=== PATIENT | female | born 1950 | race Caucasian/White ===

== ENCOUNTER → 2021-11-20 16:31 | Outpatient (CLI) | payer MEDICARE, OTHER, SELFPAY ==
--- NOTE | 2021-11-20 | DI.RAD.S_ITS ---
PROCEDURE: XR KNEE RT 3V INDICATIONS: M25.561 TECHNIQUE: 3 views of the knee were acquired. COMPARISON: None. FINDINGS: Bones: No fractures or dislocations. No suspicious bony lesions. Tricompartment degenerative osteophytes. Lateral compartment joint space loss. Soft tissues: No joint effusion. No suspicious soft tissue calcifications. IMPRESSION: Degenerative arthritis of the right knee. Dictated by: Wai Lui M.D. on 11/21/2021 at 15:32 Approved by: Wai Lui M.D. on 11/21/2021 at 15:33
== END ==
PROVIDERS: PCP Family Medicine; Referring Provider Family Medicine; Visit Provider Family Medicine
DX: M17.11 Unilateral primary osteoarthritis, right knee (principal); M25.561 Pain in right knee
CPT/HCPCS: 73562

== ENCOUNTER → 2021-12-23 13:57 | Outpatient (CLI) | payer MEDICARE, OTHER, SELFPAY ==
--- NOTE | 2021-12-23 | DI.MG.S_ITS ---
BILATERAL DIGITAL SCREENING MAMMOGRAM 3D/2D WITH CAD: 12/23/2021 CLINICAL: Routine screening. Comparison is made to exams dated: 09/25/2020 mammogram, 10/14/2017 mammogram, and 09/14/2016 mammogram - [facility]. There are scattered areas of fibroglandular density in both breasts (category b / 25%-50% glandular tissue). Current study was also evaluated with a Computer Aided Detection (CAD) system. No significant masses, calcifications, or other findings are seen in either breast. There has been no significant interval change. IMPRESSION: NEGATIVE There is no mammographic evidence of malignancy. A 1 year screening mammogram is recommended. Based on the Tyrer Cuzick model (a risk assessment model) the patient's lifetime risk is 7.9% and her 10 year risk is 5.1%. According to the ACR, ACS, and NCCN guidelines, an annual breast MRI exam along with mammogram is recommended if the patient's lifetime risk is 20% or greater. This exam was interpreted at Station ID: [id number]. NOTE: For mammograms, a report in lay terms will be sent to the patient. Approximately 15% of breast malignancies will not be visualized mammographically. In the management of a palpable breast mass, a negative mammogram must not discourage biopsy of a clinically suspicious lesion. Electronically Signed By: Robbie chandler/cullen:12/23/2021 18:10:11 letter sent: Normal Exam ACR BI-RADS Category 1: Negative 3341F
== END ==
PROVIDERS: PCP Family Medicine; Referring Provider Family Medicine; Visit Provider Family Medicine
DX: Z12.31 Encounter for screening mammogram for malignant neoplasm of breast (principal)
CPT/HCPCS: 77063; 77067

== ENCOUNTER → 2021-12-31 09:15 | Outpatient (CLI) | payer MEDICARE, OTHER, SELFPAY ==
[2021-12-31 10:56] LABS: COVID19 -Nasal RAPID Negative (Negative)
== END ==
PROVIDERS: PCP Family Medicine; Visit Provider Surgery
DX: Z20.822 Contact with and (suspected) exposure to COVID-19 (principal); Z01.812 Encounter for preprocedural laboratory examination
CPT/HCPCS: 87635; C9803

== ENCOUNTER 2022-01-01 11:45 | Day surgery (SDC) | payer MEDICARE, OTHER, SELFPAY ==
[2022-01-01 12:27] VITALS: BP 156/83; PULSE 72; RESP 16; TEMP 36.6; O2SAT 97; BMI 33.1
[2022-01-01] MEDS: LACTATED RINGERS 1,000 ML 200 ML IV (12:52)
--- NOTE | 2022-01-01 12:54 | PM.HP.1 ---
History of Present Illness History of Present Illness Date Patient Seen: 01/01/22 Time Patient Seen: 12:54 Chief complaint: Colonoscopy Narrative: Namrata is a 71-year-old who is here for colonoscopy today. Her last colonoscopy was in 2007. She had no polyps at that time. She is no known family history of colon cancer. Patient History Medical History (Updated 01/01/22 @ 12:55 by Miguel Mayen MD) Anemia Anxiety Arthritis Depression GERD (gastroesophageal reflux disease) History of pneumonia HTN (hypertension) Hyperlipidemia Migraines Skin cancer (melanoma) UTI (urinary tract infection) Surgical History (Updated 01/01/22 @ 12:07 by Pablo Proctor RN) History of appendectomy Family & Social History Social History: household members family Tobacco & Substance use: Smoking Status Never smoker alcohol intake never alcohol intake frequency other Meds Home Medications and Allergies Home Medications Medication Instructions Recorded Confirmed Type bupropion HCl 150 mg tablet,12 hr 150 mg PO BID 04/01/18 01/01/22 History sustained-release enalapril maleate 20 mg tablet 20 mg PO BID 04/01/18 01/01/22 History erythromycin 5 mg/gram (0.5 %) eye 1 applic ophthalmic (eye) TID #1 g 04/01/18 01/01/22 Rx ointment hydralazine 25 mg tablet 25 mg PO BID 04/01/18 01/01/22 History metoprolol succinate 25 mg capsule 25 mg PO DAILY 04/01/18 01/01/22 History sprinkle, ext. release 24 hr simvastatin 20 mg tablet 20 mg PO BEDTIME 04/01/18 01/01/22 History sodium,potassium,mag sulfates 17.5 See Rx Instructions PO .COMPLEX 12/03/21 01/01/22 Rx gram-3.13 gram-1.6 gram oral soln #354 mL (Suprep Bowel Prep Kit) Allergies Allergy/AdvReac Type Severity Reaction Status Date / Time amlodipine Allergy Severe Rash Verified 01/01/22 12:16 hydrochlorothiazide AdvReac Rash Verified 01/01/22 12:07 From BACTRIM Allergy Mild Uncoded 01/01/22 12:07 From KEFLEX Allergy Mild Uncoded 01/01/22 12:07 AMOXICILLIN Allergy Unknown Uncoded 01/01/22 12:07 Exam Vital Signs (past 8 hours): - 01/01/22 12:27 Temperature 97.8 F Pulse Rate 72 Respiratory Rate 16 Blood Pressure 156/83 H Pulse Oximetry 97 Oxygen Delivery Method Room Air Oxygen Delivery Method Room Air Const General: healthy appearing Assessment & Plan Assessment and plan (1) Colon cancer screening: Status: Acute Plan Reviewed the risks and benefits of colonoscopy for colon cancer screening and she would like to proceed. Time Spent With Patient Critical Care time: I spent a total of [] minutes of critical care time on this patient's care today; this time is exclusive of procedural time.
[2022-01-01] MEDS: fentaNYL 100 MCG/2 ML INJ 125 MCG IV (13:27)
[2022-01-01] MEDS: MIDAZOLAM 5 MG/5 ML VIAL IV (13:27)
--- NOTE | 2022-01-01 13:36 | PM.OP.COLON ---
Operative Date/Time/Diagnoses Date of procedure: 01/01/22 Time of procedure: 13:36 Pre-op diagnosis: Colon cancer screening Post-op diagnosis: same Procedure & Clinicians Study performed: Colonoscopy Same procedure as scheduled: Yes Surgeon: Miguel Mayen Procedure Notes Procedure in detail: Surgeon: Miguel Mayen MD Procedure: The patient was brought to the endoscopy suite, placed in left lateral decubitus position. The patient was connected to monitoring devices. A time-out was performed. Sedation was administered. Once the patient was adequately sedated, a digital rectal exam was performed and was normal. The scope was then inserted and advanced to the cecum where the appendiceal orifice was identified and photographed. The scope was then slowly withdrawn over greater than 6 minutes. The mucosa was thoroughly inspected. No polyps were seen. There were a few rare diverticula in the sigmoid colon. The scope was retroflexed in the rectum. No abnormalities were seen. The scope was straightened and removed. The patient was awakened and brought to recovery. Versed: 5 mg Fentanyl: 125 mcg EBL: 0 Findings: Normal colon Scope withdrawal time: 7 Sedation minutes: 19 Post-procedure Recommendations: Colonoscopy in 10 years Disposition: PACU
[2022-01-01 13:41] VITALS: BP 130/68; PULSE 65; RESP 12; TEMP 36.2; O2SAT 97
[2022-01-01 13:46] VITALS: BP 120/68; PULSE 56; PULSE 58; RESP 15; RESP 17; O2SAT 97; O2SAT 99
[2022-01-01 13:51] VITALS: BP 117/64; PULSE 57; RESP 14; O2SAT 100
[2022-01-01 13:56] VITALS: BP 128/68; PULSE 56; RESP 12; O2SAT 10
[2022-01-01 14:03] VITALS: BP 138/65; PULSE 60; RESP 12; TEMP 36.3; O2SAT 98
== END 2022-01-01 14:33 | disposition home or self-care (01) ==
PROVIDERS: PCP Family Medicine; Referring Provider Surgery; Visit Provider Surgery
PROC: 0DJD8ZZ Inspection of Lower Intestinal Tract, Via Natural or Artificial Opening Endoscopic (ICD-10-PCS; CPT 45378; principal; 2022-01-01 12:45)
DX: Z12.11 Encounter for screening for malignant neoplasm of colon (principal); K57.30 Diverticulosis of large intestine without perforation or abscess without bleeding
CPT/HCPCS: G0121; 99152; J2250; J3010

== ENCOUNTER → 2022-02-03 09:22 | Outpatient (CLI) | payer MEDICARE, OTHER, SELFPAY | PROVIDERS: PCP Family Medicine; Referring Provider Family Medicine; Visit Provider Family Medicine | DX: Z78.0 Asymptomatic menopausal state (principal); Z13.820 Encounter for screening for osteoporosis | CPT/HCPCS: 77080 ==

== ENCOUNTER → 2023-05-03 12:27 | Outpatient (CLI) | payer MEDICARE, OTHER, SELFPAY ==
--- NOTE | 2023-05-03 12:29 | DI.MG.S_ITS ---
BILATERAL DIGITAL SCREENING MAMMOGRAM 3D/2D WITH CAD: 05/03/2023 CLINICAL: Routine screening. Family history of breast cancer. Comparison is made to exams dated: 12/23/2021 mammogram - [facility], 09/25/2020 mammogram, and 10/14/2017 mammogram - [facility]. There are scattered areas of fibroglandular density in both breasts (category b / 25%-50% glandular tissue). Current study was also evaluated with a Computer Aided Detection (CAD) system. No significant masses, calcifications, or other findings are seen in either breast. There has been no significant interval change. IMPRESSION: NEGATIVE There is no mammographic evidence of malignancy. A 1 year screening mammogram is recommended. Based on the Tyrer Cuzick model (a risk assessment model) the patient's lifetime risk is 7.5% and her 10 year risk is 5.2%. According to the ACR, ACS, and NCCN guidelines, an annual breast MRI exam along with mammogram is recommended if the patient's lifetime risk is 20% or greater. This exam was interpreted at Station ID: [id number]. NOTE: For mammograms, a report in lay terms will be sent to the patient. Approximately 15% of breast malignancies will not be visualized mammographically. In the management of a palpable breast mass, a negative mammogram must not discourage biopsy of a clinically suspicious lesion. Electronically Signed By: Kami Rodriguez M.D., PH.D omero/cullen:05/04/2023 09:19:09 letter sent: Normal Exam ACR BI-RADS Category 1: Negative 3341F
== END ==
LOC: MAMMO 12:28
PROVIDERS: PCP Family Medicine; Referring Provider Family Medicine; Visit Provider Family Medicine
DX: Z12.31 Encounter for screening mammogram for malignant neoplasm of breast (principal); Z80.3 Family history of malignant neoplasm of breast; R92.323 Mammographic fibroglandular density, bilateral breasts
CPT/HCPCS: 77063; 77067

== ENCOUNTER 2023-06-03 17:14 | Emergency (ER) | payer MEDICARE, OTHER, SELFPAY ==
[2023-06-03 17:25] VITALS: BP 218/93; PULSE 71; RESP 18; TEMP 36.9; O2SAT 99; BMI 32.8
--- NOTE | 2023-06-03 17:32 | DI.RAD.S_ITS ---
PROCEDURE: XR KNEE RT 3V INDICATIONS: Injury to R knee; cannot weight bear without pain TECHNIQUE: 3 views of the knee were acquired. COMPARISON: [facility], CR, XR KNEE RT 3V, 11/20/2021, 16:40. FINDINGS: Bones: No acute fractures or dislocations. No suspicious bony lesions. Severe joint space narrowing is seen in the lateral femorotibial compartment. Degenerative changes also seen in the medial and anterior compartments. Soft tissues: Moderate joint effusion. No suspicious soft tissue calcifications. IMPRESSION: 1. No acute osseous abnormality. If there is continued clinical concern or persistent symptoms, repeat radiographs or cross-sectional imaging (e.g. CT, MRI) may be helpful for further evaluation. 2. Tricompartmental osteoarthrosis, severe at the lateral femorotibial compartment. 3. Moderate joint effusion. Approved by: Jimi Nguyen M.D. on 06/03/2023 at 19:45
--- NOTE | 2023-06-03 19:00 | ED.LOWEXIN ---
HPI - Extremity Injury (Lower) <Chiquita Perez PA-C - Last Filed: 06/03/23 19:13> General Chief Complaint: Extremity Injury, Lower Stated Complaint: rt knee injury Time Seen by Provider: 06/03/23 18:39 Source: patient Mode of arrival: Wheelchair History of Present Illness HPI Narrative: 72-year-old female presents to the ED with right knee pain that started earlier today. Patient states that she was trying to stand up from sitting, when she somehow twisted her right knee, following which she had significant pain and is unable to straighten her knee. Patient states that the right knee has been prone to such injuries, however it has bounced back to normal after some light massaging and dressed. However this time around, patient is unable to bear weight and walk or extend her knee. Patient denies numbness, tingling, weakness. Patient has an ortho appointment next week. Related Data Home Medications Medication Instructions Recorded Confirmed bupropion HCl 150 mg tablet,12 hr 150 mg PO BID 04/01/18 01/01/22 sustained-release enalapril maleate 20 mg tablet 20 mg PO BID 04/01/18 01/01/22 hydralazine 25 mg tablet 25 mg PO BID 04/01/18 01/01/22 metoprolol succinate 25 mg capsule 25 mg PO DAILY 04/01/18 01/01/22 sprinkle, ext. release 24 hr simvastatin 20 mg tablet 20 mg PO BEDTIME 04/01/18 01/01/22 Previous Rx's Medication Instructions Recorded erythromycin 5 mg/gram (0.5 %) eye 1 applic ophthalmic (eye) TID #1 g 04/01/18 ointment sodium,potassium,mag sulfates 17.5 See Rx Instructions PO .COMPLEX 12/03/21 gram-3.13 gram-1.6 gram oral soln #354 mL (Suprep Bowel Prep Kit) Allergies Allergy/AdvReac Type Severity Reaction Status Date / Time amlodipine Allergy Severe Rash Verified 01/01/22 12:16 hydrochlorothiazide AdvReac Rash Verified 01/01/22 12:07 From BACTRIM Allergy Mild Uncoded 01/01/22 12:07 From KEFLEX Allergy Mild Uncoded 01/01/22 12:07 AMOXICILLIN Allergy Unknown Uncoded 01/01/22 12:07 Review of Systems <Chiquita Perez PA-C - Last Filed: 06/03/23 19:13> Constitutional Constitutional: Denies chills, Denies fatigue, Denies fever(s), Denies frequent falls, Denies lethargy and Denies weakness Eyes Eyes: Denies change in vision, Denies eye discharge, Denies irritation and Denies loss of vision ENT Ears, Nose, Mouth, and Throat: Denies change in voice, Denies dizziness, Denies neck pain, Denies sore throat and Denies throat swelling Cardiovascular Cardiovascular: Denies chest pain, Denies irregular heart rhythm, Denies lightheadedness, Denies palpitations, Denies dyspnea, Denies dyspnea on exertion and Denies orthopnea Respiratory Respiratory: Denies cough, Denies dyspnea, Denies dyspnea on exertion and Denies wheezing Gastrointestinal Gastrointestinal: Denies abdominal pain, Denies change in bowel habits, Denies diarrhea, Denies nausea and Denies vomiting Musculoskeletal Musculoskeletal: Denies neck pain and Denies numbness Comments: Right knee pain Integumentary/Breasts Skin/Breast: Denies pruritus, Denies erythema, Denies rash and Denies wounds Neurologic Neurologic: Denies behavioral changes, Denies confusion, Denies dizziness, Denies frequent falls, Denies loss of vision, Denies numbness and Denies weakness Psychiatric Psychiatric: Denies anxiety, Denies behavioral changes, Denies confusion, Denies depression, Denies homicidal ideation and Denies suicidal ideation Endocrine Endocrine: Denies fatigue, Denies flushing and Denies palpitations Hematologic/Lymphatic Hematologic/Lymphatic: Denies easy bruising Allergic/Immunologic Allergic/Immunologic: Denies urticaria, Denies throat swelling and Denies wheezing Patient History <Chiquita Perez PA-C - Last Filed: 06/03/23 19:13> Medical History Anemia Skin cancer (melanoma) Depression Anxiety Migraines UTI (urinary tract infection) GERD (gastroesophageal reflux disease) Arthritis History of pneumonia Hyperlipidemia HTN (hypertension) Surgical History History of appendectomy Social History household members: family Smoking Status: Never smoker alcohol intake: never Smoking Status: Never smoker alcohol intake frequency: other Substance Use Type: does not use Exam <VIVIANA Ibarra Last Filed: 06/03/23 19:13> Narrative Exam Narrative: Const General:?cooperative, healthy appearing and comfortable [facility] Head:?normal to inspection Ears:?hearing grossly normal bilaterally Nose:?external nose normal Face and sinus:?normal facial exam and sinuses nontender Mouth:?oral mucosae normal Throat:?posterior oropharynx normal Eyes General:?appearance normal, both eyes and all related structures Neck Neck:?normal visual inspection and no lymphadenopathy noted Resp Effort & Inspection:?normal respiratory effort Auscultation:?clear to auscultation bilaterally Cardio Rate:?regular rate Rhythm:?regular rhythm Musculoskeletal No swelling, bruising, deformities noted on exam. There is minimal tenderness to palpation of the right knee. Strength and sensation is intact. Patient has range of motion is limited by pain. Patient is keeping her knee in flexion. Neuro General:?patient alert, patient awake and patient oriented x3 Initial Vital Signs Initial Vital Signs: Vital Signs Temperature 98.5 F 06/03/23 17:25 Pulse Rate 71 06/03/23 17:25 Respiratory Rate 18 06/03/23 17:25 Blood Pressure 218/93 H 06/03/23 17:25 Pulse Oximetry 99 06/03/23 17:25 Oxygen Delivery Method Room Air 06/03/23 17:25 <DO Christie Kennedy Last Filed: 06/03/23 19:56> Initial Vital Signs Initial Vital Signs: Vital Signs Temperature 98.5 F 06/03/23 17:25 Pulse Rate 71 06/03/23 17:25 Respiratory Rate 18 06/03/23 17:25 Blood Pressure 218/93 H 06/03/23 17:25 Pulse Oximetry 99 06/03/23 17:25 Oxygen Delivery Method Room Air 06/03/23 17:25 Course <VIVIANA Ibarra Last Filed: 06/03/23 19:13> Orders Ordered: ED Orders 06/03/23 17:32 XR knee RT 3V Stat Vital Signs Vital signs: Vital Signs - 8 hr 06/03/23 17:25 Temperature 98.5 F Pulse Rate 71 Respiratory Rate 18 Blood Pressure 218/93 H Pulse Oximetry 99 Oxygen Delivery Method Room Air <DO Christie Kennedy Last Filed: 02/29/24 19:56> Orders Ordered: ED Orders 06/03/23 17:32 XR knee RT 3V Stat Vital Signs Vital signs: Vital Signs - 8 hr 06/03/23 17:25 Temperature 98.5 F Pulse Rate 71 Respiratory Rate 18 Blood Pressure 218/93 H Pulse Oximetry 99 Oxygen Delivery Method Room Air MDM - Extremity Injury (Lower) <Chiquita Perez PA-C - Last Filed: 06/03/23 19:13> [facility] Narrative Medical decision making narrative: 72-year-old female presents to the ED with right knee pain that started earlier today. Concern for fracture/dislocation versus musculoskeletal sprain/strain. X-ray has been obtained. Patient takes meloxicam daily and declined Tylenol since she has Tylenol in her bag. Patient has been signed out to Dr. Rock. <Darshan Rock DO - Last Filed: 06/03/23 19:56> [facility] Narrative Medical decision making narrative: 72-year-old female presents to the ED with right knee pain that started earlier today. Concern for fracture/dislocation versus musculoskeletal sprain/strain. X-ray has been obtained. Patient takes meloxicam daily and declined Tylenol since she has Tylenol in her bag. Patient has been signed out to Dr. Rock. Dr Rock: Received turned over. Review patient's history and physical exam. Reviewed patient's x-ray. No fractures. Suspect that she has flared her arthritis. No indication for admission to the hospital or emergent orthopedic consultation. She has an appointment with Orthopedic surgery already scheduled for next week. Was given return precautions. She expressed understanding and agreement. Discharge Plan Departure Patient Disposition: Home Clinical Impression: Arthritis Instructions: DI for Arthritis Activity Restrictions/Additional Instructions: Continue to take all of your medications as directed. Keep your scheduled medical appointment with Orthopedic surgery next week. Return to the emergency department for new symptoms. Prescriptions: No Action bupropion HCl 150 mg tablet sustained-release 12 hr 150 mg PO BID enalapril maleate 20 mg tablet 20 mg PO BID hydralazine 25 mg tablet 25 mg PO BID simvastatin 20 mg tablet 20 mg PO BEDTIME metoprolol succinate 25 mg cap,sprinkle,ER 24hr dose pack 25 mg PO DAILY erythromycin 5 mg/gram (0.5 %) ointment 1 applic ophthalmic (eye) TID Qty: 1 0RF sodium,potassium,mag sulfates [Suprep Bowel Prep Kit] 17.5-3.13-1.6 gram recon soln See Rx Instructions PO .COMPLEX Qty: 354 0RF Rx Instructions: Take as directed by Physician Referrals: Rosalinda Canela MD [Primary Care Provider] - Stand Alone Forms: Patient Portal/API
[2023-06-03 20:12] VITALS: BP 191/88; PULSE 70; RESP 18; O2SAT 99
== END 2023-06-03 20:13 | disposition home or self-care (01) ==
PROVIDERS: Emergency Provider Student in an Organized Health Care Education/Training Program; PCP Family Medicine
DX: M17.11 Unilateral primary osteoarthritis, right knee (principal); M25.561 Pain in right knee; X50.1XXA Overexertion from prolonged static or awkward postures, initial encounter
CPT/HCPCS: 73562; 99281; 99283

== ENCOUNTER 2023-06-21 12:15 | Emergency (ER) | payer MEDICARE, OTHER, SELFPAY ==
[2023-06-21] VITALS (11 sets, daily range): BP systolic 175–221; BP diastolic 77–98; PULSE 55–72; RESP 8–27; TEMP 36.2; O2SAT 96–99; BMI 33.1
--- NOTE | 2023-06-21 12:24 | DI.RAD.S_ITS ---
PROCEDURE: XR CHEST 1V INDICATIONS: chest pain TECHNIQUE: One view of the chest was acquired. COMPARISON: None. FINDINGS: Surgical changes and devices: None. Lungs and pleura: Lungs are clear. No pleural effusions or pneumothorax. Mediastinum: Mediastinal contours appear normal. Heart size is normal. Bones and chest wall: No suspicious bony lesions. Overlying soft tissues appear unremarkable. IMPRESSION: No acute cardiopulmonary abnormality is seen. Dictated by: Colten Abrams M.D. on 06/21/2023 at 13:28 Approved by: Colten Abrams M.D. on 06/21/2023 at 13:28
[2023-06-21 12:52] LABS: Add Manual Diff / Slide Review NO; Basophils Absolute Auto 0 /uL (0-100); Basophils Percent Auto 0.6 % (0-2); Eosinophils Absolute Auto 300 /uL (0-450); Hematocrit 37.5 % (36-46); Hemoglobin 12.5 g/dL (12.0-16.0); Lymphocytes Absolute Auto 1500 /uL (1100-4500); Lymphocytes Percent Auto 18.2 % (25-40); Mean Corpuscular HGB Conc 33.4 % (30-36); Mean Corpuscular Hemoglobin 28.4 PG (26-34); Mean Corpuscular Volume 85.2 fL (80-100); Monocytes Absolute Auto 600 /uL (0-900); Neutrophils Absolute Auto 6000 /uL (1500-7000); Neutrophils Percent Auto 71.2 % (50-75); Platelet Count 291 X10^3/uL (150-400); Red Cell Distribution Width 14.2 % (11.6-14.8); White Blood Cell Count 8.4 X10^3/uL (4.5-11.0)
[2023-06-21 12:57] LABS: INR 0.9 (0.9-1.3); Prothrombin Time 10.5 SECONDS (9.4-12.5)
[2023-06-21 13:00] LABS: PTT Partial Thromboplastin Tim 34 SECONDS (25.1-36.5)
[2023-06-21 13:01] LABS: Alanine Aminotransferase 22 IU/L (<35); Albumin 4.4 g/dL (3.5-5.0); Albumin Globulin Ratio 1.4 (1.0-2.8); Alkaline Phosphatase 61 U/L (38-126); Aspartate Aminotransferase 27 IU/L (14-36); BUN Creatinine Ratio 14.6 (6-22); Bilirubin Total 0.5 mg/dL (0.2-1.3); Blood Urea Nitrogen 12 mg/dL (7-17); Calcium 9.3 mg/dL (8.4-10.2); Carbon Dioxide 25 mmol/L (22-32); Chloride 107 mmol/L (98-107); Creatine Kinase 96 U/L (30-135); Estimated Glomerular Filt Rate > 60 mL/min (>60); Globulin 3.1 g/dL (1.7-4.1); Glucose 129 mg/dL (80-110); HEMOLYSIS < 15 (0-50); Lipase 109 U/L (23-300); Magnesium 2.1 mg/dL (1.6-2.3); Sodium 138 mmol/L (137-145); Total Protein 7.5 g/dL (6.3-8.2)
[2023-06-21 13:12] LABS: Troponin I < 0.012 ng/mL (0.01-0.034)
--- NOTE | 2023-06-21 14:33 | ED_ITS ---
HPI - Arrhythmia/Palpitations General Chief Complaint: Arrhythmia/Palpitations Stated Complaint: palpitations, lightheaded, just feeling weird Time Seen by Provider: 06/21/23 14:33 Source: patient Mode of arrival: Ambulatory History of Present Illness HPI narrative: 72-year-old female with history of hypertension, dyslipidemia, depression and osteoarthritis who presents with complaint of feeling weird. Patient states she left home this morning she had been fasting with plan to have lab work started to just feel weird the DrAngel states she got her labs done went to [employer] and had a cheeseburger and juice at about 11:00 a.m. and still felt weird so presented to the emergency department even afterwards. She feels better now she states she feels back to normal. Denies fevers or chills, no headache, no vision changes, no chest pain or shortness of breath, no nausea or vomiting, no issues with bowel movements such as diarrhea constipation, no dysuria urgency or frequency no incontinence. No numbness tingling or weakness that is lateralizing. She states her fingers felt tingly on both sides and she is felt like her walking felt weird in both legs. Patient states she felt sort of weak and shaky. She states she did not have any numbness tingling or facial droop appreciated. 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 States prior surgeries include appendectomy, has not allergy to amoxicillin, Bactrim and HCTZ which cause hives, she states she had reaction to Keflex as well. Patient states no tobacco, alcohol or recreational drugs. Dr. Canela is her primary care physician. Home medications include enalapril, hydralazine, metoprolol, simvastatin, bupropion, meloxicam and Tylenol daily. Patient states she took her home medications today. Related Data Home Medications Medication Instructions Recorded Confirmed bupropion HCl 150 mg tablet,12 hr 150 mg PO BID 04/01/18 01/01/22 sustained-release enalapril maleate 20 mg tablet 20 mg PO BID 04/01/18 01/01/22 hydralazine 25 mg tablet 25 mg PO BID 04/01/18 01/01/22 metoprolol succinate 25 mg capsule 25 mg PO DAILY 04/01/18 01/01/22 sprinkle, ext. release 24 hr simvastatin 20 mg tablet 20 mg PO BEDTIME 04/01/18 01/01/22 Previous Rx's Medication Instructions Recorded erythromycin 5 mg/gram (0.5 %) eye 1 applic ophthalmic (eye) TID #1 g 04/01/18 ointment sodium,potassium,mag sulfates 17.5 See Rx Instructions PO .COMPLEX 12/03/21 gram-3.13 gram-1.6 gram oral soln #354 mL (Suprep Bowel Prep Kit) Allergies Allergy/AdvReac Type Severity Reaction Status Date / Time amlodipine Allergy Severe Rash Verified 01/01/22 12:16 hydrochlorothiazide AdvReac Rash Verified 01/01/22 12:07 From BACTRIM Allergy Mild Uncoded 01/01/22 12:07 From KEFLEX Allergy Mild Uncoded 01/01/22 12:07 AMOXICILLIN Allergy Unknown Uncoded 01/01/22 12:07 Review of Systems Review of Systems ROS Unobtainable: All systems reviewed & are unremarkable except as noted in HPI and below Patient History Medical History Anemia Skin cancer (melanoma) Depression Anxiety Migraines UTI (urinary tract infection) GERD (gastroesophageal reflux disease) Arthritis History of pneumonia Hyperlipidemia HTN (hypertension) Surgical History History of appendectomy Social History household members: family Smoking Status: Never smoker alcohol intake: never Smoking Status: Never smoker alcohol intake frequency: other Substance Use Type: does not use Exam Narrative Exam Narrative: GENERAL: Alert and oriented x three, well-appearing female in mild distress. HEENT: Head normocephalic, atraumatic, EOMI, pupils reactive, face symmetric, moist mucous membranes, no facial droop. NECK: Supple, full range of motion CARDIOVASCULAR: Regular rate and rhythm without murmurs, rubs or gallops. No JVD. No edema bilateral lower extremities. RESPIRATORY: Breath sounds equal bilaterally, no wheezes rales or rhonchi. No tachypnea or accessory muscle use. ABDOMEN: Soft, nontender. Normoactive bowel sounds all 4 quadrants. No guarding or rebound, rigidity, no mass : No CVA tenderness EXTREMITIES: Normal range of motion, no clubbing or edema. Neurovascularly intact. 5/5 muscle strength upper and lower extremities. Sensation intact. NEUROLOGICAL: Cranial nerves II through XII grossly intact. Moving all extremities. Normal gait. SKIN: Warm, dry, no petechiae, no rashes or lesions. Initial Vital Signs Initial Vital Signs: Vital Signs Temperature 97.1 F L 06/21/23 12:18 Pulse Rate 72 06/21/23 12:18 Respiratory Rate 18 06/21/23 12:18 Blood Pressure 219/94 H 06/21/23 12:18 Pulse Oximetry 98 06/21/23 12:18 Oxygen Delivery Method Room Air 06/21/23 12:18 Course Orders Ordered: ED Orders 06/21/23 12:24 XR chest 1V Stat EKG-12 Lead Stat 06/21/23 12:35 Complete Blood Count AUTO DIFF Stat Comprehensive Metabolic Panel Stat Lipase Stat Magnesium Stat PTT Partial Thromboplastin Demetrius Stat Prothrombin Time INR Stat Troponin & CK Cardiac Panel Stat Discontinued Medications Aspirin (Aspirin 81 Mg Chew Tab) 324 mg PO NOW ONE Stop: 06/21/23 12:25 Last Admin: 06/21/23 12:39 Dose: Not Given Documented By: KM Vital Signs Vital signs: Vital Signs - 8 hr 06/21/23 12:18 06/21/23 12:36 06/21/23 12:37 Temperature 97.1 F L Pulse Rate 72 72 Respiratory Rate 18 13 Blood Pressure 219/94 H 221/92 H Pulse Oximetry 98 97 Oxygen Delivery Method Room Air 06/21/23 12:37 06/21/23 12:42 06/21/23 12:42 Temperature Pulse Rate 71 64 Respiratory Rate 27 H 11 L Blood Pressure 189/98 H Pulse Oximetry 97 97 Oxygen Delivery Method 06/21/23 13:00 06/21/23 13:00 06/21/23 13:30 Temperature Pulse Rate 60 55 L Respiratory Rate 8 L Blood Pressure 186/85 H Pulse Oximetry 96 98 Oxygen Delivery Method 06/21/23 13:30 06/21/23 14:18 06/21/23 14:20 Temperature Pulse Rate 59 L Respiratory Rate Blood Pressure 175/78 H 179/80 H Pulse Oximetry 97 Oxygen Delivery Method 06/21/23 14:20 06/21/23 14:30 06/21/23 15:00 Temperature Pulse Rate 56 L 55 L 58 L Respiratory Rate Blood Pressure Pulse Oximetry 99 97 97 Oxygen Delivery Method 06/21/23 15:10 06/21/23 15:10 Temperature Pulse Rate 59 L Respiratory Rate 25 H Blood Pressure 181/77 H Pulse Oximetry 98 Oxygen Delivery Method MDM - Arrhythmia/Palpitations Lab Data 06/21/23 12:35 06/21/23 12:35 Labs: Lab Results 06/21/23 Range/Units 12:35 WBC 8.4 (4.5-11.0) X10^3/uL RBC 4.40 (4.0-5.2) X10^6/uL Hgb 12.5 (12.0-16.0) g/dL Hct 37.5 (36-46) % MCV 85.2 (80-100) fL MCH 28.4 (26-34) PG MCHC 33.4 (30-36) % RDW 14.2 (11.6-14.8) % Plt Count 291 (150-400) X10^3/uL Neut % (Auto) 71.2 (50-75) % Lymph % (Auto) 18.2 L (25-40) % [place] % (Auto) 7.0 (3-14) % Eos % (Auto) 3.0 (2-4) % Baso % (Auto) 0.6 (0-2) % Neut # (Auto) 6000 (8473-7369) /uL Lymph # (Auto) 1500 (7954-8144) /uL [place] # (Auto) 600 (0-900) /uL Eos # (Auto) 300 (0-450) /uL Baso # (Auto) 0 (0-100) /uL PT 10.5 (9.4-12.5) SECONDS INR 0.9 (0.9-1.3) APTT 34 (25.1-36.5) SECONDS Sodium 138 (137-145) mmol/L Potassium 4.0 (3.4-5.1) mmol/L Chloride 107 (98-107) mmol/L Carbon Dioxide 25 (22-32) mmol/L BUN 12 (7-17) mg/dL Creatinine 0.82 (0.52-1.04) mg/dL Estimated GFR > 60 (>60) mL/min BUN/Creatinine Ratio 14.6 (6-22) Glucose 129 H (80-110) mg/dL Calcium 9.3 (8.4-10.2) mg/dL Magnesium 2.1 (1.6-2.3) mg/dL Total Bilirubin 0.5 (0.2-1.3) mg/dL AST 27 (14-36) IU/L ALT 22 (<35) IU/L Alkaline Phosphatase 61 (38-126) U/L Total Creatine Kinase 96 (30-135) U/L Troponin I < 0.012 (0.01-0.034) ng/mL Total Protein 7.5 (6.3-8.2) g/dL Albumin 4.4 (3.5-5.0) g/dL Globulin 3.1 (1.7-4.1) g/dL Albumin/Globulin Ratio 1.4 (1.0-2.8) Lipase 109 (23-300) U/L Urine Dip Bedside Urine Glucose Negative Bedside Urine Bilirubin - Negative Bedside Urine Ketone - Negative Urine Specific [place] 1.010 Bedside Urine Occult Blood - Negative Bedside Urine pH 6.5 Bedside Urine Protein - Negative Bedside Urine Urobilinogen - Negative Bedside Urine Nitrite - Negative Bedside Urine Leukocytes - Negative Esterase Imaging Data Chest x-ray: Radiologist's Impresson: Close Chest X-Ray (Signed) Colten Abrams - 06/21/23 Knee X-Ray (Signed) Jimi Nguyen - 06/03/23 Mammogram Screening (Signed) Kami Rodriguez - 05/03/23 DEXA Result 02/03/22 Bone Densitometry 02/03/22 Telemetry Strips 01/01/22 Mammogram Screening (Signed) Robbie Lantigua - 12/23/21 Knee X-Ray (Signed) Wai Lui - 11/20/[address] [address] XRay Report Signed Patient: Zenaida Urena MR#: [id number] : 1950 Acct:[id number] Age/Sex: 72 / F Date of Service: 06/21/23 Loc: ED Accession Number: [id number] Procedure: XR chest 1V Ordering Provider: Alba Wilcox D.O. PROCEDURE: XR CHEST 1V INDICATIONS: chest pain TECHNIQUE: One view of the chest was acquired. COMPARISON: None. FINDINGS: Surgical changes and devices: None. Lungs and pleura: Lungs are clear. No pleural effusions or pneumothorax. Mediastinum: Mediastinal contours appear normal. Heart size is normal. Bones and chest wall: No suspicious bony lesions. Overlying soft tissues appear unremarkable. IMPRESSION: No acute cardiopulmonary abnormality is seen. Dictated by: Colten Abrams M.D. on 06/21/2023 at 13:28 Approved by: Colten Abrams M.D. on 06/21/2023 at 13:28 ECG Data Attestation: I personally reviewed and interpreted this ECG as follows: Prior ECG tracings: not available for review Interpretation: Sinus rhythm rate of 66 OK 150 QRS 86 QTC [address] No acute ST elevation, patient appears to have little bit of motion artifact in V5 no new depression. Nonspecific change. Acute for prior. MDM Narrative Medical decision making narrative: 72-year-old female who states she felt weird earlier today had been fasting for a.m. labs, even afterwards she went and ate salt felt off but states she has now feels back to normal. She does not describe any acute neurologic changes she just felt off like her brain and shortened but was able to speak move without any issues. She states she felt a little bit tingling in both and in the fingertips. No acute infectious changes, patient is slightly hypertensive but otherwise appropriate vitals. Exam is overall reassuring. Labs show white count 8.4, hemoglobin of 12 platelets of 290 1- coags, creatinine is normal range at 0.82 with a BUN of 12, glucose of 129, sodium is 138 potassium is 4 Mag is 2.1, chloride 107 CO2 of 25, negative LFTs, negative troponin. Chest x-ray shows no acute change. EKG shows sinus rhythm nonspecific change. Patient does not have any cardiac equivalent so did not repeat troponin. Patient states she feels back to normal at this time did not have any acute changes but seem consistent with stroke or other acute neurologic event felt appropriate for discharge home. Discharge Plan Departure Patient Disposition: Home Clinical Impression: Weakness Activity Restrictions/Additional Instructions: Follow up with your physician as needed. Workup today show any acute changes, I hope you continue to feel improved. Please return for new or worsening symptoms, headaches, sudden vision changes, new numbness, tingling or weakness, difficulty with movement, speech, persistent vomiting or other new or concerning changes. Prescriptions: No Action bupropion HCl 150 mg tablet sustained-release 12 hr 150 mg PO BID enalapril maleate 20 mg tablet 20 mg PO BID hydralazine 25 mg tablet 25 mg PO BID simvastatin 20 mg tablet 20 mg PO BEDTIME metoprolol succinate 25 mg cap,sprinkle,ER 24hr dose pack 25 mg PO DAILY erythromycin 5 mg/gram (0.5 %) ointment 1 applic ophthalmic (eye) TID Qty: 1 0RF sodium,potassium,mag sulfates [Suprep Bowel Prep Kit] 17.5-3.13-1.6 gram recon soln See Rx Instructions PO .COMPLEX Qty: 354 0RF Rx Instructions: Take as directed by Physician Referrals: Rosalinda Canela MD [Primary Care Provider] - Stand Alone Forms: Patient Portal/API
== END 2023-06-21 15:20 | disposition home or self-care (01) ==
PROVIDERS: Emergency Provider Emergency Medicine; PCP Family Medicine
DX: R20.2 Paresthesia of skin (principal); R53.1 Weakness; I10 Essential (primary) hypertension
CPT/HCPCS: 36415; 71045; 80053; 81003; 82550; 83690; 83735; 84484; 85025; 85610; 85730; 93005; 99283; 99284

== ENCOUNTER → 2024-05-18 15:47 | Outpatient (CLI) | payer MEDICARE, OTHER, SELFPAY ==
--- NOTE | 2024-05-18 15:49 | DI.MG.S_ITS ---
BILATERAL DIGITAL SCREENING MAMMOGRAM 3D/2D WITH CAD: 05/18/2024 CLINICAL: Routine screening. Family history of breast cancer. Comparison is made to exams dated: 05/03/2023 mammogram, 12/23/2021 mammogram - [facility], and 09/25/2020 mammogram - [facility]. There are scattered areas of fibroglandular density (category b / 25%-50% glandular tissue). Current study was also evaluated with a Computer Aided Detection (CAD) system. No significant masses, calcifications, or other findings are seen in either breast. There has been no significant interval change. IMPRESSION: NEGATIVE There is no mammographic evidence of malignancy. A 1 year screening mammogram is recommended. Based on the Tyrer Cuzick model (a risk assessment model) the patient's lifetime risk is 7.1% and her 10 year risk is 5.3%. According to the ACR, ACS, and NCCN guidelines, an annual breast MRI exam along with mammogram is recommended if the patient's lifetime risk is 20% or greater. This exam was interpreted at Station ID: [id number]. NOTE: For mammograms, a report in lay terms will be sent to the patient. Approximately 15% of breast malignancies will not be visualized mammographically. In the management of a palpable breast mass, a negative mammogram must not discourage biopsy of a clinically suspicious lesion. Electronically Signed By: Robbie chandler/cullen:05/20/2024 14:32:01 letter sent: Normal Exam ACR BI-RADS Category 1: Negative
== END ==
PROVIDERS: PCP Family Medicine; Referring Provider Family Medicine; Visit Provider Family Medicine
DX: Z12.31 Encounter for screening mammogram for malignant neoplasm of breast (principal); Z80.3 Family history of malignant neoplasm of breast
CPT/HCPCS: 77063; 77067

== ENCOUNTER 2024-08-10 05:57 | Inpatient (IN) | payer MEDICARE, OTHER, SELFPAY ==
[2024-08-10] VITALS (16 sets, daily range): BP systolic 137–175; BP diastolic 50–89; PULSE 59–86; RESP 15–19; TEMP 36.6–37.4; O2SAT 92–98; BMI 35.2
--- NOTE | 2024-08-10 06:05 | EKG_ITS ---
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
[2024-08-10 06:11] LABS: Add Manual Diff / Slide Review NO; Basophils Absolute Auto 0 /uL (0-100); Basophils Percent Auto 0.2 % (0-2); Eosinophils Absolute Auto 100 /uL (0-450); Eosinophils Percent Auto 0.6 % (2-4); Hematocrit 39.3 % (36-46); Hemoglobin 12.6 g/dL (12.0-16.0); Lymphocytes Absolute Auto 500 /uL (1100-4500); Lymphocytes Percent Auto 3.5 % (25-40); Mean Corpuscular HGB Conc 32.2 % (30-36); Mean Corpuscular Hemoglobin 25.6 PG (26-34); Mean Corpuscular Volume 79.5 fL (80-100); Monocytes Absolute Auto 900 /uL (0-900); Monocytes Percent Auto 6.2 % (3-14); Neutrophils Absolute Auto 12900 /uL (1500-7000); Neutrophils Percent Auto 89.5 % (50-75); Platelet Count 317 X10^3/uL (150-400); Red Blood Cell Count 4.95 X10^6/uL (4.0-5.2); Red Cell Distribution Width 17.9 % (11.6-14.8); White Blood Cell Count 14.4 X10^3/uL (4.5-11.0)
--- NOTE | 2024-08-10 06:19 | ED.ABDPAIN ---
HPI - Abdominal Pain <Avinash Barnett MD - Last Filed: 08/10/24 14:45> General Chief Complaint: Abdominal Pain Stated Complaint: epigastric pain Time Seen by Provider: 08/10/24 06:10 Source: patient and EMS Mode of arrival: EMS History of Present Illness HPI narrative: 73-year-old female with history of hypertension, arthritis and knee pain for which she takes meloxicam, complains of epigastric discomfort last night that went away without specific treatment, again with epigasric pain for the last few hours this night. Some nausea without emesis. No diaphoresis. Denies history of known ACS. Still has her gallbladder. No known ulcers or stomach problems. Does not recall history of kidney stones, colitis, diverticulitis. No black or red stools. No trauma or new activities. Related Data Home Medications Medication Instructions Recorded Confirmed bupropion HCl 150 mg tablet,12 hr 150 mg PO DAILY 04/01/18 08/10/24 sustained-release enalapril maleate 20 mg tablet 20 mg PO BID 04/01/18 08/10/24 hydralazine 25 mg tablet 50 mg PO BID 04/01/18 08/10/24 metoprolol succinate 25 mg capsule See Rx Instructions .Route .COMPLEX 04/01/18 08/10/24 sprinkle, ext. release 24 hr simvastatin 20 mg tablet 20 mg PO BEDTIME 04/01/18 08/10/24 ferrous gluconate 325 mg (37.5 mg 325 mg PO DAILY 08/10/24 08/10/24 iron) tablet meloxicam 7.5 mg tablet 7.5 mg PO BID 08/10/24 08/10/24 Previous Rx's Medication Instructions Recorded sodium,potassium,mag sulfates 17.5 See Rx Instructions PO .COMPLEX 12/03/21 gram-3.13 gram-1.6 gram oral soln #354 mL (Suprep Bowel Prep Kit) Allergies Allergy/AdvReac Type Severity Reaction Status Date / Time amlodipine Allergy Severe Rash Verified 01/01/22 12:16 cephalexin Allergy Mild Verified 08/10/24 14:41 sulfamethoxazole Allergy Mild Verified 08/10/24 14:41 [From Bactrim] trimethoprim [From Bactrim] Allergy Mild Verified 08/10/24 14:41 amoxicillin Allergy Unknown Verified 08/10/24 14:41 hydrochlorothiazide AdvReac Rash Verified 01/01/22 12:07 Review of Systems <Jose R Schmidt MD - Last Filed: 08/10/24 08:12> Review of Systems Narrative: GENERAL: Negative chills, fatigue, malaise, fever, sweats. HEENT: Negative sinus pain, ear pain, sore throat RESPIRATORY: Negative dyspnea, cough CARDIOVASCULAR: Negative chest pain, palpitations GASTROINTESTINAL: Negative vomiting, nausea, Positive abdominal pain : Negative dysuria, frequency, hematuria MUSCULOSKELETAL: Negative muscle or bony pain SKIN: Negative rash, skin lesions NEUROLOGIC: Negative weakness, numbness ROS Unobtainable: All systems reviewed & are unremarkable except as noted in HPI and below Patient History <Avinash Barnett MD - Last Filed: 08/10/24 14:45> Medical History Anemia Skin cancer (melanoma) Depression Anxiety Migraines UTI (urinary tract infection) GERD (gastroesophageal reflux disease) Arthritis History of pneumonia Hyperlipidemia HTN (hypertension) Surgical History History of appendectomy Social History household members: none Smoking Status: Never smoker alcohol intake: never Smoking Status: Never smoker alcohol intake frequency: other Exam <Avinash Barnett MD - Last Filed: 08/10/24 14:45> Narrative Exam Narrative: GENERAL: Well-developed patient, in mild distress. HEAD: Atraumatic. Normocephalic. EYES: Pupils equal round and reactive. Extraocular motions intact. No scleral icterus. No injection or drainage. ENT: Nose without bleeding, purulent drainage. Throat without erythema, tonsillar hypertrophy or exudate. Airway patent. NECK: Trachea midline. Non tender CARDIOVASCULAR: Regular rate and rhythm without murmurs, gallops, or rubs. RESPIRATORY: Clear to auscultation. Breath sounds equal bilaterally. No wheezes, rales, or rhonchi. GASTROINTESTINAL: Mild tenderness epigastrium and left upper quadrant, no guarding or rebound tenderness, bowel tones active without rushes or tinkles. EXTREMITIES: No edema or joint tenderness. BACK: Nontender without deformity or crepitance. No flank tenderness. NEURO: AOx3. Motor functions grossly nonfocal SKIN: No rash or erythema of visible areas Initial Vital Signs Initial Vital Signs: Vital Signs Temperature 97.9 F 08/10/24 06:10 Pulse Rate 65 08/10/24 06:10 Respiratory Rate 16 08/10/24 06:10 Blood Pressure 156/70 H 08/10/24 06:10 Pulse Oximetry 98 08/10/24 06:10 Oxygen Delivery Method Room Air 08/10/24 06:10 <Jose R Schmidt MD - Last Filed: 08/10/24 08:12> Initial Vital Signs Initial Vital Signs: Vital Signs Temperature 97.9 F 08/10/24 06:10 Pulse Rate 65 08/10/24 06:10 Respiratory Rate 16 08/10/24 06:10 Blood Pressure 156/70 H 08/10/24 06:10 Pulse Oximetry 98 08/10/24 06:10 Oxygen Delivery Method Room Air 08/10/24 06:10 Course <Avinash Barnett MD - Last Filed: 08/10/24 14:45> Orders Ordered: ED Orders 08/10/24 06:04 Complete Blood Count AUTO DIFF Stat Comprehensive Metabolic Panel Stat Lipase Stat EKG-12 Lead Stat 08/10/24 06:22 CT abdomen pelvis w con Stat 08/10/24 07:11 XR abdomen 1V Stat 08/10/24 07:43 Urinalysis and Microscopic Stat Bupropion HCl (Bupropion Sr 150 Mg Tab) 150 mg PO DAILY [facility] Enalapril Maleate (Enalapril 5 Mg Tablet) 20 mg PO BID [facility] Enoxaparin Sodium (Enoxaparin 40 Mg/0.4 Ml Syringe) 40 mg SUBCUT DAILY [facility] Famotidine (Famotidine 20 Mg/2 Ml Vial) 20 mg IV NOW [facility] Hydralazine HCl (Hydralazine 25 Mg Tablet) 50 mg PO BID [facility] Last Admin: 08/10/24 14:18 Dose: 50 mg Documented By: NICOLE Hydromorphone HCl (Hydromorphone 0.5 Mg Inj) 0.5 mg IV Q3H PRN PRN Reason: Pain, Severe (7-10) Sodium Chloride (Normal Saline 0.9%) 1,000 mls @ 125 mls/hr IV CONT [facility] Last Admin: 08/10/24 09:58 Dose: 125 mls/hr Documented By: NICOLE Metoprolol Succinate (Metoprolol Er 25 Mg Tablet) 25 mg PO DAILY [facility] Metoprolol Succinate (Metoprolol Er 50 Mg Tablet) 50 mg PO BEDTIME [facility] Naloxone HCl (Naloxone 0.4 Mg/Ml Vial) 0.2 mg IV Q2MIN PRN PRN Reason: Opiate Reversal Ondansetron HCl (Ondansetron 4 Mg/2 Ml Inj) 4 mg IV Q4HR PRN PRN Reason: Nausea And Vomiting Discontinued Medications Al Hydrox/Mg Hydrox/Simethicone 20 ml/ Lidocaine HCl 15 ml 0 ml PO NOW ONE Stop: 08/10/24 06:11 Last Admin: 08/10/24 06:21 Dose: 35 ml Documented By: SAMUEL Sodium Chloride (Normal Saline 0.9%) 1,000 mls @ 1,000 mls/hr IV BOLUS ONE Stop: 08/10/24 08:42 Last Admin: 08/10/24 08:58 Dose: Not Given Documented By: NICOLE Ondansetron HCl (Ondansetron 4 Mg/2 Ml Inj) 4 mg IV NOW PRN PRN Reason: Nausea And Vomiting Ondansetron HCl (Ondansetron 4 Mg Odt) 4 mg PO NOW PRN PRN Reason: Nausea And Vomiting Vital Signs Vital signs: Vital Signs - 8 hr 08/10/24 07:00 08/10/24 07:30 Pulse Rate 64 65 Pulse Oximetry 92 96 Oxygen Delivery Method Room Air <Jose R Schmidt MD - Last Filed: 08/10/24 08:12> Orders Ordered: ED Orders 08/10/24 06:04 Complete Blood Count AUTO DIFF Stat Comprehensive Metabolic Panel Stat Lipase Stat EKG-12 Lead Stat 08/10/24 06:22 CT abdomen pelvis w con Stat 08/10/24 07:11 XR abdomen 1V Stat 08/10/24 07:43 Urinalysis and Microscopic Stat Bupropion HCl (Bupropion Sr 150 Mg Tab) 150 mg PO DAILY [facility] Enalapril Maleate (Enalapril 5 Mg Tablet) 20 mg PO BID [facility] Enoxaparin Sodium (Enoxaparin 40 Mg/0.4 Ml Syringe) 40 mg SUBCUT DAILY [facility] Famotidine (Famotidine 20 Mg/2 Ml Vial) 20 mg IV NOW [facility] Hydralazine HCl (Hydralazine 25 Mg Tablet) 50 mg PO BID [facility] Last Admin: 08/10/24 14:18 Dose: 50 mg Documented By: NICOLE Hydromorphone HCl (Hydromorphone 0.5 Mg Inj) 0.5 mg IV Q3H PRN PRN Reason: Pain, Severe (7-10) Sodium Chloride (Normal Saline 0.9%) 1,000 mls @ 125 mls/hr IV CONT [facility] Last Admin: 08/10/24 09:58 Dose: 125 mls/hr Documented By: NICOLE Metoprolol Succinate (Metoprolol Er 25 Mg Tablet) 25 mg PO DAILY [facility] Metoprolol Succinate (Metoprolol Er 50 Mg Tablet) 50 mg PO BEDTIME [facility] Naloxone HCl (Naloxone 0.4 Mg/Ml Vial) 0.2 mg IV Q2MIN PRN PRN Reason: Opiate Reversal Ondansetron HCl (Ondansetron 4 Mg/2 Ml Inj) 4 mg IV Q4HR PRN PRN Reason: Nausea And Vomiting Discontinued Medications Al Hydrox/Mg Hydrox/Simethicone 20 ml/ Lidocaine HCl 15 ml 0 ml PO NOW ONE Stop: 08/10/24 06:11 Last Admin: 08/10/24 06:21 Dose: 35 ml Documented By: SAMUEL Sodium Chloride (Normal Saline 0.9%) 1,000 mls @ 1,000 mls/hr IV BOLUS ONE Stop: 08/10/24 08:42 Last Admin: 08/10/24 08:58 Dose: Not Given Documented By: NICOLE Ondansetron HCl (Ondansetron 4 Mg/2 Ml Inj) 4 mg IV NOW PRN PRN Reason: Nausea And Vomiting Ondansetron HCl (Ondansetron 4 Mg Odt) 4 mg PO NOW PRN PRN Reason: Nausea And Vomiting Vital Signs Vital signs: Vital Signs - 8 hr 08/10/24 07:00 08/10/24 07:30 Pulse Rate 64 65 Pulse Oximetry 92 96 Oxygen Delivery Method Room Air MDM - Abdominal Pain <Avinash Barnett MD - Last Filed: 08/10/24 14:45> Lab Data Attestation: I reviewed the patient's lab results. Lab results narrative: White blood cell count 33017, hemoglobin 12.6, platelets adequate. Glucose 153. Renal function normal. Electrolytes unremarkable. Serum carbon dioxide 27. Liver functions normal. Lipase normal. 08/10/24 06:04 08/10/24 06:04 Labs: Lab Results 08/10/24 Range/Units 06:04 WBC 14.4 H (4.5-11.0) X10^3/uL RBC 4.95 (4.0-5.2) X10^6/uL Hgb 12.6 (12.0-16.0) g/dL Hct 39.3 (36-46) % MCV 79.5 L (80-100) fL MCH 25.6 L (26-34) PG MCHC 32.2 (30-36) % RDW 17.9 H (11.6-14.8) % Plt Count 317 (150-400) X10^3/uL Neut % (Auto) 89.5 H (50-75) % Lymph % (Auto) 3.5 L (25-40) % [place] % (Auto) 6.2 (3-14) % Eos % (Auto) 0.6 L (2-4) % Baso % (Auto) 0.2 (0-2) % Neut # (Auto) 96491 H (7575-2188) /uL Lymph # (Auto) 500 L (5120-2630) /uL [place] # (Auto) 900 (0-900) /uL Eos # (Auto) 100 (0-450) /uL Baso # (Auto) 0 (0-100) /uL Sodium 137 (137-145) mmol/L Potassium 4.4 (3.4-5.1) mmol/L Chloride 103 (98-107) mmol/L Carbon Dioxide 27 (22-32) mmol/L BUN 19 H (7-17) mg/dL Creatinine 0.98 (0.52-1.04) mg/dL Estimated GFR > 60 (>60) mL/min BUN/Creatinine Ratio 19.4 (6-22) Glucose 153 H (70-99) mg/dL Calcium 9.7 (8.4-10.2) mg/dL Total Bilirubin 0.4 (0.2-1.3) mg/dL AST 29 (14-36) IU/L ALT 23 (<35) IU/L Alkaline Phosphatase 68 (38-126) U/L Total Protein 6.9 (6.3-8.2) g/dL Albumin 4.2 (3.5-5.0) g/dL Globulin 2.7 (1.7-4.1) g/dL Albumin/Globulin Ratio 1.6 (1.0-2.8) Lipase 61 (23-300) U/L MDM Narrative Medical decision making narrative: 73-year-old female takes meloxicam for knee pain arthritis, history of hypertension, epigastric pain, some tenderness epigastrium and left upper quadrant. Afebrile, sirs screen negative. White blood cell count 99187 mildly elevated, with normal renal function, normal liver functions, normal lipase. IV Pepcid. CT abdomen and pelvis ordered. CT abdomen and pelvis suspicious for evolving small bowel obstruction, per phone call from [employer], dictated report yet to import. 0700, signed out to Dr Schmitd 7:[address] Schmidt: Sign-out from Dr. Barnett, patient will need to be admitted for partial bowel obstruction. 7:10 a.m.. Spoke with General surgery Dr Storey, who will follow in consult. Desires NG tube. He will see patient this morning. Admit to hospitalist. 7:15 a.m.. Spoke with patient. She does understand and agree she will be admitted. And will need NG tube. 7:[address] Canela, primary care provider, she will admit patient Discussion: Appropriate for admission. Patient will need admission for partial bowel obstruction. NG tube to be placed. General surgery to follow in consult. Hospitalist to admit. Diagnosis: Partial bowel obstruction <Jose R Schmidt MD - Last Filed: 08/10/24 08:12> Lab Data Labs: Lab Results 08/10/24 Range/Units 06:04 WBC 14.4 H (4.5-11.0) X10^3/uL RBC 4.95 (4.0-5.2) X10^6/uL Hgb 12.6 (12.0-16.0) g/dL Hct 39.3 (36-46) % MCV 79.5 L (80-100) fL MCH 25.6 L (26-34) PG MCHC 32.2 (30-36) % RDW 17.9 H (11.6-14.8) % Plt Count 317 (150-400) X10^3/uL Neut % (Auto) 89.5 H (50-75) % Lymph % (Auto) 3.5 L (25-40) % [place] % (Auto) 6.2 (3-14) % Eos % (Auto) 0.6 L (2-4) % Baso % (Auto) 0.2 (0-2) % Neut # (Auto) 82552 H (2420-1026) /uL Lymph # (Auto) 500 L (3288-5599) /uL [place] # (Auto) 900 (0-900) /uL Eos # (Auto) 100 (0-450) /uL Baso # (Auto) 0 (0-100) /uL Sodium 137 (137-145) mmol/L Potassium 4.4 (3.4-5.1) mmol/L Chloride 103 (98-107) mmol/L Carbon Dioxide 27 (22-32) mmol/L BUN 19 H (7-17) mg/dL Creatinine 0.98 (0.52-1.04) mg/dL Estimated GFR > 60 (>60) mL/min BUN/Creatinine Ratio 19.4 (6-22) Glucose 153 H (70-99) mg/dL Calcium 9.7 (8.4-10.2) mg/dL Total Bilirubin 0.4 (0.2-1.3) mg/dL AST 29 (14-36) IU/L ALT 23 (<35) IU/L Alkaline Phosphatase 68 (38-126) U/L Total Protein 6.9 (6.3-8.2) g/dL Albumin 4.2 (3.5-5.0) g/dL Globulin 2.7 (1.7-4.1) g/dL Albumin/Globulin Ratio 1.6 (1.0-2.8) Lipase 61 (23-300) U/L Imaging Data CT scan - abdomen/pelvis: Radiologist's Impression: partial bowel obstruction MDM Narrative Medical decision making narrative: 73-year-old female takes meloxicam for knee pain arthritis, history of hypertension, epigastric pain, some tenderness epigastrium and left upper quadrant. Afebrile, sirs screen negative. White blood cell count 40992 mildly elevated, with normal renal function, normal liver functions, normal lipase. IV Pepcid. CT abdomen and pelvis ordered. CT abdomen and pelvis suspicious for evolving small bowel obstruction, per phone call from [employer], dictated reports still yet to import. 0700, signed out to Dr Schmidt 7:[address] Schmidt: Sign-out from Dr. Barnett, patient will need to be admitted for partial bowel obstruction. 7:10 a.m.. Spoke with General surgery Dr Storey, who will follow in consult. Desires NG tube. He will see patient this morning. Admit to hospitalist. 7:15 a.m.. Spoke with patient. She does understand and agree she will be admitted. And will need NG tube. 7:[address] Canela, primary care provider, she will admit patient Discussion: Appropriate for admission. Patient will need admission for partial bowel obstruction. NG tube to be placed. General surgery to follow in consult. Hospitalist to admit. Diagnosis: Partial bowel obstruction Discharge Plan Departure Patient Disposition: Admitted as Observation Clinical Impression: Small bowel obstruction Admit Date/Time: 08/10/24 07:45 Admit Provider: Rosalinda Canela
[2024-08-10] MEDS: MAG HYDROX/ALUMINUM/SIMETH SUS 20 ML, LIDOCAINE VISCOUS 2% 15 ML PO (06:21)
[2024-08-10 06:22] LABS: Alanine Aminotransferase 23 IU/L (<35); Albumin 4.2 g/dL (3.5-5.0); Albumin Globulin Ratio 1.6 (1.0-2.8); Alkaline Phosphatase 68 U/L (38-126); Aspartate Aminotransferase 29 IU/L (14-36); BUN Creatinine Ratio 19.4 (6-22); Bilirubin Total 0.4 mg/dL (0.2-1.3); Blood Urea Nitrogen 19 mg/dL (7-17); Carbon Dioxide 27 mmol/L (22-32); Chloride 103 mmol/L (98-107); Estimated Glomerular Filt Rate > 60 mL/min (>60); Globulin 2.7 g/dL (1.7-4.1); HEMOLYSIS < 15 (0-50); Lipase 61 U/L (23-300); Sodium 137 mmol/L (137-145); Total Protein 6.9 g/dL (6.3-8.2)
--- NOTE | 2024-08-10 06:22 | DI.CT.S_ITS ---
PROCEDURE: CT ABDOMEN PELVIS W CON INDICATIONS: epig pain, tend epig/LUQ TECHNIQUE: After the administration of intravenous contrast, axial sections acquired from the lung bases to the pubic symphysis. Coronal and sagittal reformats were performed. For radiation dose reduction, the following was used: automated exposure control, adjustment of mA and/or kV according to patient size. COMPARISON: None. FINDINGS: Image quality: Diagnostic. Lower Chest: No significant findings. ABDOMEN: Liver: No solid mass. Simple appearing cysts as well as subcentimeter hypodensities, too small to accurately characterize. Gallbladder: No radiopaque gallstones or wall thickening. Biliary ducts: No biliary dilation. Pancreas: No ductal dilation. Spleen: Size is within normal limits. Adrenal Glands: Calcified cystic left adrenal structure measuring 3.3 x 2.7 cm. Kidneys and Ureters: No hydronephrosis. No solid mass. No complex renal cystic lesion which requires follow up. Stomach and Bowel: Small hiatal hernia. Normal colonic caliber, without significant wall thickening. Dilated fluid-filled loops of small bowel measuring up to 2.7 cm with possible transition point in the left upper quadrant (image 71). Peritoneum: Small volume ascites. No free air. Ventral Wall: No significant ventral hernia. Abdominal Nodes: No retroperitoneal or mesenteric adenopathy by size criteria. Vessels: Aorta and inferior vena cava are normal in size. Atherosclerotic vascular calcifications. PELVIS: Pelvic Organs: Unremarkable. Bladder: No bladder wall thickening, accounting for underdistention. Pelvic Nodes: No enlarged lymph nodes. Miscellaneous: No inguinal hernias are seen. Bones: No aggressive osseous abnormality. Degenerative changes of the spine. Grade 2 anterolisthesis of L5 on S1 with bilateral pars interarticularis defects. IMPRESSION: 1. Findings compatible with small-bowel obstruction with transition point in the left upper quadrant. Small volume ascites is likely reactive. No pneumatosis is identified. 2. Cystic and calcified structure within the left adrenal gland measuring up to 3.3 cm. 3. Please see above for additional findings. Findings are concordant with preliminary interpretation provided by [facility]. Dictated by: Jacob Reddy M.D. on 08/10/2024 at 8:37 Approved by: Jacob Reddy M.D. on 08/10/2024 at 8:43
[2024-08-10 06:25] LABS: Calcium 9.7 mg/dL (8.4-10.2); Glucose 153 mg/dL (70-99); Potassium 4.4 mmol/L (3.4-5.1)
--- NOTE | 2024-08-10 07:11 | DI.RAD.S_ITS ---
PROCEDURE: XR ABDOMEN 1V INDICATIONS: NG tube placement TECHNIQUE: One view of the abdomen acquired. COMPARISON: [facility], CT, CT ABDOMEN PELVIS W CON, 08/10/2024, 6:41. FINDINGS: Surgical changes and devices: NG tube projects to just beyond the GE junction. Slight advancement suggested. Bowel: Small-bowel obstruction. Soft tissues: No suspicious abdominal calcifications. Visualized solid organ contours appear normal in size. Bones: No suspicious bony lesions. IMPRESSION: NG tube projects just beyond the GE junction. Slight advancement suggested. Small bowel obstruction. Dictated by: Wai Lui M.D. on 08/10/2024 at 8:29 Approved by: Wai Lui M.D. on 08/10/2024 at 8:30
[2024-08-10] MEDS: SODIUM CHLORIDE 0.9% 1,000 ML 125 ML IV (09:58)
--- NOTE | 2024-08-10 10:47 | P.CONS_ITS ---
History of Present Illness Consult details Chief complaint: epigastric pain Narrative: 73-year-old female with a history of appendectomy remotely presented to the ED last night complaining of a several hour history of left upper quadrant and left epigastric abdominal pain associated with nausea but no vomiting. Her last flatus and bowel movement were yesterday. She had a white count of 14-1/[address] in ED and the CT reportedly demonstrated findings consistent with partial small bowel obstruction, potentially with a transition point in the left upper quadrant. I am consulted to render a surgical opinion regarding need for surgical intervention. Meds Home Medications and Allergies Home Medications Medication Instructions Recorded Confirmed Type bupropion HCl 150 mg tablet,12 hr 150 mg PO DAILY 04/01/18 08/10/24 History sustained-release enalapril maleate 20 mg tablet 20 mg PO BID 04/01/18 08/10/24 History hydralazine 25 mg tablet 50 mg PO BID 04/01/18 08/10/24 History metoprolol succinate 25 mg capsule See Rx Instructions .Route .COMPLEX 04/01/18 08/10/24 History sprinkle, ext. release 24 hr simvastatin 20 mg tablet 20 mg PO BEDTIME 04/01/18 08/10/24 History sodium,potassium,mag sulfates 17.5 See Rx Instructions PO .COMPLEX 12/03/21 08/10/24 Rx gram-3.13 gram-1.6 gram oral soln #354 mL (Suprep Bowel Prep Kit) ferrous gluconate 325 mg (37.5 mg 325 mg PO DAILY 08/10/24 08/10/24 History iron) tablet meloxicam 7.5 mg tablet 7.5 mg PO BID 08/10/24 08/10/24 History Allergies Allergy/AdvReac Type Severity Reaction Status Date / Time amlodipine Allergy Severe Rash Verified 01/01/22 12:16 hydrochlorothiazide AdvReac Rash Verified 01/01/22 12:07 From BACTRIM Allergy Mild Uncoded 01/01/22 12:07 From KEFLEX Allergy Mild Uncoded 01/01/22 12:07 AMOXICILLIN Allergy Unknown Uncoded 01/01/22 12:07 Review of Systems Review of Systems Narrative: Comprehensive review of system was negative with the exception of the previously mentioned chronic conditions. Exam Vital Signs (past 8 hours): - 08/10/24 06:10 08/10/24 06:19 08/10/24 06:30 Temperature 97.9 F Pulse Rate 65 68 64 Respiratory Rate 16 Blood Pressure 156/70 H Pulse Oximetry 98 97 96 Oxygen Delivery Method Room Air Room Air 08/10/24 07:00 08/10/24 07:30 08/10/24 07:46 Temperature Pulse Rate 64 65 Respiratory Rate Blood Pressure Pulse Oximetry 92 96 Oxygen Delivery Method Room Air Room Air 08/10/24 08:00 Temperature Pulse Rate 59 L Respiratory Rate Blood Pressure Pulse Oximetry 94 Oxygen Delivery Method Oxygen Delivery Method Room Air Narrative Exam Narrative: In general this is a moderately obese female alert and oriented x3 in no acute distress. Head is normocephalic and atraumatic. Neck is supple. Back is without CVA or spinous process tenderness. Lungs are clear to auscultation. Chest is symmetric nontender with normal inspiratory and expiratory excursion. Heart has a regular rate and rhythm with no murmur or gallop. Abdomen is generally soft with normal bowel sounds. There is mild right lower quadrant tenderness without guarding. Neurological exam is grossly nonfocal. Extremities manifests full range of motion and are neurovascularly intact. Objective Labs 08/10/24 06:04 08/10/24 06:04 Labs: Laboratory Results - last 24 hr 08/10/24 06:04 WBC 14.4 H RBC 4.95 Hgb 12.6 Hct 39.3 MCV 79.5 L MCH 25.6 L MCHC 32.2 RDW 17.9 H Plt Count 317 Neut % (Auto) 89.5 H Lymph % (Auto) 3.5 L [place] % (Auto) 6.2 Eos % (Auto) 0.6 L Baso % (Auto) 0.2 Neut # (Auto) 47978 H Lymph # (Auto) 500 L [place] # (Auto) 900 Eos # (Auto) 100 Baso # (Auto) 0 Sodium 137 Potassium 4.4 Chloride 103 Carbon Dioxide 27 BUN 19 H Creatinine 0.98 Estimated GFR > 60 BUN/Creatinine Ratio 19.4 Glucose 153 H Calcium 9.7 Total Bilirubin 0.4 AST 29 ALT 23 Alkaline Phosphatase 68 Total Protein 6.9 Albumin 4.2 Globulin 2.7 Albumin/Globulin Ratio 1.6 Lipase 61 PFSH Medical History Anemia Skin cancer (melanoma) Depression Anxiety Migraines UTI (urinary tract infection) GERD (gastroesophageal reflux disease) Arthritis History of pneumonia Hyperlipidemia HTN (hypertension) Surgical History History of appendectomy Social History household members: none Tobacco & Substance Use Smoking Status: Never smoker alcohol intake: never Assessment & Plan Assessment and plan (1) Small bowel obstruction: Status: Acute Plan There is no indication for urgent surgical intervention at this time. I recommend continued IV fluid resuscitation and NG suction. A majority of the time this situation resolves itself given 24-36 hours of that sort of therapy. I recommend continued and she suction and IV fluids. KUB in the morning. Ultimate management to be predicated on whether or not the condition resolves. Time-Based Coding :: [TOTAL MINUTES] spent with patient and on the chart (including review of chart, obtaining history, exam, reviewing outside data, placing orders, documenting exam and treatment plan, and counseling patient) on [DATE]. PROFEE Charge Codes Inpatient or Observation consultation: 42092
--- NOTE | 2024-08-10 13:44 | P.HP_ITS ---
History of Present Illness History of Present Illness Date Patient Seen: 08/10/24 Time Patient Seen: 13:44 Chief complaint: epigastric pain Narrative: This is a very pleasant patient who has a past medical history of hypertension, depression, osteoarthritis and hyperlipidemia who presents to the ER via ambulance for acute onset of severe abdominal pain in her midepigastrium and left upper quadrant. Patient was evaluated in the ER and found to have a leukocytosis and a partial small-bowel obstruction. Surgery was consulted and NG tube was placed. Patient was admitted for further monitoring, diagnostic workup and treatment. Patient is feeling much better. She has received Zofran which is helping with her nausea and dilauded for pain. Patient was in her usual state of health when on the night early in the morning of August 09 patient had sudden onset of abdominal pain she rates it as a 6/10 which then spontaneously resolved. She went on with her regular day yesterday and went out to lunch with her friend had a hamburger and then had vegetables in the evening and went to bed at 10:00 a.m.. She felt fine. She had a bowel movement yesterday. She had no fever chills rashes or any other symptoms. No diarrhea or constipation. No nausea. She awakened in the middle of the night with severe abdominal pain 9/10 that did not resolve within 3-4 hours and she called 911 to come to the ER. At that point she was diagnosed with partial small bowel obstruction and admitted to the hospital. Twelve point review of systems is negative other than above No chest pain or shortness for breath. She did have diaphoresis associated with the pain. No blood in her stool she had had a last colonoscopy in 2021 which was totally normal. She has no history of GI illnesses. She has had no fever or infectious symptoms. She has had no unintentional weight loss or weight gain Patient is still not very active. She had a total knee replacement 1 year ago still has been slow to increase her activity and recover from the surgery. Past medical history : 1. Hypertension 2. Hyperlipidemia 3. Mild depression 4. Osteoarthritis 5. History of malignant melanoma 6. Iron deficiency anemia Past surgical history: 1. Appendectomy 2. Total knee replacement right, August of 2023 3. Normal spontaneous vaginal delivery x3 Health related behavior: Patient does not smoke and never has been a smoker No alcohol use Patient is not very active Social history: Patient is a . She lives in [place] in her own home. Her sister and rhjgweg-ib-aep live in [place] as well. Her 3 children live in the [facility] but not in [place] but they are supportive and involved in her life. She has good social support Family history: Dad of acute LA at age 59 Mom in her 90s. She from complications of dementia. She had history of AFib and cardiac issues Sister has dementia 1 brother is healthy 1 brother with hypertension [facility] Medical History Anemia Skin cancer (melanoma) Depression Anxiety Migraines UTI (urinary tract infection) GERD (gastroesophageal reflux disease) Arthritis History of pneumonia Hyperlipidemia HTN (hypertension) Surgical History History of appendectomy Social History household members: none Smoking Status: Never smoker alcohol intake: never Meds Home Medications and Allergies Home Medications Medication Instructions Recorded Confirmed Type bupropion HCl 150 mg tablet,12 hr 150 mg PO DAILY 04/01/18 08/10/24 History sustained-release enalapril maleate 20 mg tablet 20 mg PO BID 04/01/18 08/10/24 History hydralazine 25 mg tablet 50 mg PO BID 04/01/18 08/10/24 History metoprolol succinate 25 mg capsule See Rx Instructions .Route .COMPLEX 04/01/18 08/10/24 History sprinkle, ext. release 24 hr simvastatin 20 mg tablet 20 mg PO BEDTIME 04/01/18 08/10/24 History sodium,potassium,mag sulfates 17.5 See Rx Instructions PO .COMPLEX 12/03/21 08/10/24 Rx gram-3.13 gram-1.6 gram oral soln #354 mL (Suprep Bowel Prep Kit) ferrous gluconate 325 mg (37.5 mg 325 mg PO DAILY 08/10/24 08/10/24 History iron) tablet meloxicam 7.5 mg tablet 7.5 mg PO BID 08/10/24 08/10/24 History Allergies Allergy/AdvReac Type Severity Reaction Status Date / Time amlodipine Allergy Severe Rash Verified 01/01/22 12:16 hydrochlorothiazide AdvReac Rash Verified 01/01/22 12:07 From BACTRIM Allergy Mild Uncoded 01/01/22 12:07 From KEFLEX Allergy Mild Uncoded 01/01/22 12:07 AMOXICILLIN Allergy Unknown Uncoded 01/01/22 12:07 Exam Vital Signs (past 8 hours): - 08/10/24 06:10 08/10/24 06:19 08/10/24 06:30 Temperature 97.9 F Pulse Rate 65 68 64 Respiratory Rate 16 Blood Pressure 156/70 H Pulse Oximetry 98 97 96 Oxygen Delivery Method Room Air Room Air Oxygen Flow Rate 08/10/24 07:00 08/10/24 07:30 08/10/24 07:46 Temperature Pulse Rate 64 65 Respiratory Rate Blood Pressure Pulse Oximetry 92 96 Oxygen Delivery Method Room Air Room Air Oxygen Flow Rate 08/10/24 08:00 08/10/24 12:04 Temperature 97.9 F Pulse Rate 59 L 61 Respiratory Rate 18 Blood Pressure 175/71 H Pulse Oximetry 94 98 Oxygen Delivery Method Oxygen Flow Rate 0 Oxygen Delivery Method Room Air Oxygen Flow Rate 0 Narrative Exam Narrative: Afebrile vital signs stable other than elevated blood pressure Patient is alert and oriented x3 in excellent historian Patient is resting comfortably in hospital bed with NG tube in place HEENT unremarkable Neck: Supple without adenopathy or thyromegaly Chest: Clear to auscultation without wheezes rhonchi or crackles Cor: Regular rate and rhythm with distant S1-S2 Abdomen: Distended, overall soft but tenderness in left upper quadrant. No guarding or rebound tenderness. No hepatosplenomegaly. Hypoactive bowel sounds but bowel sounds present in the right upper quadrant right lower quadrant Extremities: No edema pulses intact Neurologic exam nonfocal Skin exam unremarkable Objective Labs 08/10/24 06:04 08/10/24 06:04 Labs: Laboratory Results - last 24 hr 08/10/24 06:04 WBC 14.4 H RBC 4.95 Hgb 12.6 Hct 39.3 MCV 79.5 L MCH 25.6 L MCHC 32.2 RDW 17.9 H Plt Count 317 Neut % (Auto) 89.5 H Lymph % (Auto) 3.5 L [place] % (Auto) 6.2 Eos % (Auto) 0.6 L Baso % (Auto) 0.2 Neut # (Auto) 01450 H Lymph # (Auto) 500 L [place] # (Auto) 900 Eos # (Auto) 100 Baso # (Auto) 0 Sodium 137 Potassium 4.4 Chloride 103 Carbon Dioxide 27 BUN 19 H Creatinine 0.98 Estimated GFR > 60 BUN/Creatinine Ratio 19.4 Glucose 153 H Calcium 9.7 Total Bilirubin 0.4 AST 29 ALT 23 Alkaline Phosphatase 68 Total Protein 6.9 Albumin 4.2 Globulin 2.7 Albumin/Globulin Ratio 1.6 Lipase 61 Assessment & Plan Assessment & Plan narrative: 73-year-old female admitted with partial small bowel obstruction Assessment 1. Partial small bowel obstruction unclear etiology. Appreciate surgical consultation. Plan: Will continue NPO with IV fluids and recheck labs tomorrow. Will continue with Zofran for nausea and pain as needed and NG tube. Encourage ambulation. X-ray will be repeated tomorrow. We will continue with conservative treatment. Assessment 2. Hypertension. Will have patient take her outpatient medications with sips of water Assessment 3. Mild depression, no acute issues Plan: Continue bupropion 150 mg in a.m.. Assessment number for DVT prophylaxis Plan: Lovenox Assessment 5. Leukocytosis suspect related to pain and bowel obstruction. No evidence of infection at this time or clinical evidence Of the same. Plan: Urine culture pending. Repeat CBC tomorrow Assessment 6. Hyperlipidemia Plan: Hold statin for now Assessment 7. Degenerative arthritis Plan: Hold meloxicam for now Code status is full code 76 minute spent with patient reviewing chart and discussing with physicians and nursing and meeting with patient and formulating plan and documentation Time-Based Coding :: [TOTAL MINUTES] spent with patient and on the chart (including review of chart, obtaining history, exam, reviewing outside data, placing orders, documenting exam and treatment plan, and counseling patient) on [DATE].
[2024-08-10] MEDS: hydrALAZINE 25 MG TABLET 50 MG PO ×2 (14:18→21:05)
[2024-08-10] MEDS: ENALAPRIL 5 MG TABLET 20 MG PO (21:00)
[2024-08-10] MEDS: METOPROLOL ER 50 MG TABLET PO (21:05)
[2024-08-11] VITALS (7 sets, daily range): BP systolic 130–144; BP diastolic 50–81; PULSE 67–94; RESP 18; TEMP 36.3–36.7; O2SAT 93–96
--- NOTE | 2024-08-11 | DI.CT.S_ITS ---
PROCEDURE: CT ABDOMEN ADRENAL PROTOCOL INDICATIONS: left adrenal mass TECHNIQUE: Noncontrast 3 mm thick sections acquired from the diaphragms to the iliac crests. After the administration of intravenous contrast, 3 mm thick venous-phase and 15-minute delayed images acquired from the diaphragms to the iliac crests. For radiation dose reduction, the following was used: automated exposure control, adjustment of mA and/or kV according to patient size. COMPARISON: [facility], CR, XR CHEST 1V, 06/21/2023, 12:37. [facility], CR, XR BONE LENGTH SCANOGRAM, 08/05/2023, 13:36. [facility], CR, XR KUB, 08/11/2024, 9:37. [facility], CR, XR ABDOMEN 1V, 08/10/2024, 7:27. [facility], CT, CT ABDOMEN PELVIS W CON, 08/10/2024, 6:41. FINDINGS: Image quality: Excellent. Lower chest: Unremarkable. ABDOMEN: Adrenal Glands: No adrenal nodules on the right. There is a complex cystic and calcified mass involving the left adrenal gland measuring up to 5.7 cm AP, 4.4 cm craniocaudad and 2.7 cm maximal transverse dimension. Three phases of contrast enhancement show nonspecific rim enhancement of several of the cystic areas which measured just above water in radiodensity. No suspicion for pseudoaneurysm with peripheral calcifications as cause of this abnormality. Liver: No solid mass. Gallbladder: No radiopaque gallstones or wall thickening. Biliary ducts: No biliary dilation. Pancreas: No ductal dilation. Spleen: Size is within normal limits. Kidneys and Ureters: No hydronephrosis. No solid mass. No complex renal cystic lesion which requires follow up. Stomach and Bowel: Normal colonic caliber, without significant wall thickening. Resolving small-bowel obstruction pattern. Peritoneum: Slight improvement in abnormal left upper quadrant intraperitoneal fluid. No free air. Ventral Wall: No hernia. Abdominal Nodes: No retroperitoneal or mesenteric adenopathy by size criteria. Vessels: Aorta and inferior vena cava are normal in size. Bones: No aggressive osseous abnormality. IMPRESSION: Complex left adrenal cystic and calcified mass as discussed above showing imaging characteristics of a lesion not representing a benign adrenal adenoma. The calcified and cystic components can be seen in pheochromocytoma but also can be seen in the setting of prior adrenal hemorrhage. Laboratory correlation for pheochromocytoma is recommended. Of note the calcifications can be seen on plain film imaging and the CT scanogram plain film equivalents from this study and the CT 1 day ago, and also on a chest plain film from 06/21/23. The calcifications were largely obscured by overlapping electrode lead cluster and only a small portion of the medial left upper quadrant was included on that a prior chest plain film. Therefore this structure has presumably been present at least since early 2023. Dictated by: Aamndo Parsons M.D. on 08/11/2024 at 13:57 Approved by: Amando Parsons M.D. on 08/11/2024 at 14:18
[2024-08-11] MEDS: SODIUM CHLORIDE 0.9% 1,000 ML 125 ML IV (01:29)
--- NOTE | 2024-08-11 02:14 | PC.NURSE ---
night order selector during 1919 physical assessment patient told RN that she had been having lots of Flatulence; and that she hoped to have BM soon. RN encouraged her and let her know to use call light so we could assist patient to bedside commode. Patient verbalized understanding and had no questions. patient denied pain, N/V, lightheadedness.
[2024-08-11 05:38] LABS: Add Manual Diff / Slide Review NO; Basophils Absolute Auto 0 /uL (0-100); Basophils Percent Auto 0.5 % (0-2); Eosinophils Absolute Auto 200 /uL (0-450); Eosinophils Percent Auto 2.1 % (2-4); Hematocrit 33.6 % (36-46); Hemoglobin 10.9 g/dL (12.0-16.0); Lymphocytes Absolute Auto 800 /uL (1100-4500); Lymphocytes Percent Auto 10.8 % (25-40); Mean Corpuscular HGB Conc 32.3 % (30-36); Mean Corpuscular Hemoglobin 25.6 PG (26-34); Mean Corpuscular Volume 79.3 fL (80-100); Monocytes Absolute Auto 700 /uL (0-900); Monocytes Percent Auto 9.9 % (3-14); Neutrophils Absolute Auto 5800 /uL (1500-7000); Neutrophils Percent Auto 76.7 % (50-75); Platelet Count 265 X10^3/uL (150-400); Red Blood Cell Count 4.24 X10^6/uL (4.0-5.2); Red Cell Distribution Width 17.7 % (11.6-14.8); White Blood Cell Count 7.5 X10^3/uL (4.5-11.0)
[2024-08-11 05:43] LABS: Alanine Aminotransferase 15 IU/L (<35); Albumin 3.2 g/dL (3.5-5.0); Albumin Globulin Ratio 1.3 (1.0-2.8); Alkaline Phosphatase 60 U/L (38-126); Aspartate Aminotransferase 21 IU/L (14-36); BUN Creatinine Ratio 13.3 (6-22); Bilirubin Total 0.3 mg/dL (0.2-1.3); Blood Urea Nitrogen 12 mg/dL (7-17); Calcium 8.2 mg/dL (8.4-10.2); Carbon Dioxide 24 mmol/L (22-32); Chloride 109 mmol/L (98-107); Estimated Glomerular Filt Rate > 60 mL/min (>60); Globulin 2.4 g/dL (1.7-4.1); Glucose 103 mg/dL (70-99); HEMOLYSIS < 15 (0-50); Potassium 3.9 mmol/L (3.4-5.1); Sodium 138 mmol/L (137-145); Total Protein 5.6 g/dL (6.3-8.2)
--- NOTE | 2024-08-11 07:50 | PM.PN.IH.1 ---
Subjective Subjective Interval history: Feels better. No nausea or vomiting. Also has no appetite. Some left upper quadrant discomfort persists but at a reduced level. Passing flatus. Exam Vital Signs (past 8 hours): - 08/11/24 02:05 Pulse Rate 67 Blood Pressure 138/50 L Oxygen Delivery Method Room Air Oxygen Flow Rate 0 Narrative Exam Narrative: Lungs are clear to auscultation. Heart has a regular rate and rhythm with no murmur or gallop. Abdomen is soft with minimal left upper quadrant tenderness, no guarding and normal bowel sounds. Objective Labs 08/11/24 04:50 08/11/24 04:50 Labs: Laboratory Results - last 24 hr 08/11/24 04:50 WBC 7.5 RBC 4.24 Hgb 10.9 L Hct 33.6 L MCV 79.3 L MCH 25.6 L MCHC 32.3 RDW 17.7 H Plt Count 265 Neut % (Auto) 76.7 H Lymph % (Auto) 10.8 L [place] % (Auto) 9.9 Eos % (Auto) 2.1 Baso % (Auto) 0.5 Neut # (Auto) 5800 Lymph # (Auto) 800 L [place] # (Auto) 700 Eos # (Auto) 200 Baso # (Auto) 0 Sodium 138 Potassium 3.9 Chloride 109 H Carbon Dioxide 24 BUN 12 Creatinine 0.90 Estimated GFR > 60 BUN/Creatinine Ratio 13.3 Glucose 103 H Calcium 8.2 L Total Bilirubin 0.3 AST 21 ALT 15 Alkaline Phosphatase 60 Total Protein 5.6 L Albumin 3.2 L Globulin 2.4 Albumin/Globulin Ratio 1.3 PFSH Medical History Anemia Skin cancer (melanoma) Depression Anxiety Migraines UTI (urinary tract infection) GERD (gastroesophageal reflux disease) Arthritis History of pneumonia Hyperlipidemia HTN (hypertension) Surgical History History of appendectomy Social History household members: none Smoking Status: Never smoker alcohol intake: never Assessment & Plan Assessment and plan (1) Small bowel obstruction: Status: Acute Plan Impression: Resolving ileus verse partial small bowel obstruction. GI function appears to be returning. Leukocytosis has resolved without specific intervention. Exam is innocuous. Plan: Surgical intervention not indicated. KUB pending however with clinical improvement I believe the patient is best served by proceeding with slow resumption of p.o. intake. Proceed with ice chips p.o.. Consider clear liquids with dietary advancement tomorrow if she continues to do well. Time-Based Coding :: [TOTAL MINUTES] spent with patient and on the chart (including review of chart, obtaining history, exam, reviewing outside data, placing orders, documenting exam and treatment plan, and counseling patient) on [DATE]. PROFEE Stringer Machine Tender Document charge(s): Yes
[2024-08-11] MEDS: ENALAPRIL 5 MG TABLET 20 MG PO (09:14)
[2024-08-11] MEDS: hydrALAZINE 25 MG TABLET 50 MG PO (09:14)
[2024-08-11] MEDS: METOPROLOL ER 25 MG TABLET PO (09:14)
[2024-08-11] MEDS: buPROPion SR 150 MG TAB PO (09:14)
[2024-08-11] MEDS: ENOXAPARIN 40 MG/0.4 ML SYRINGE SUBCUT (09:14)
--- NOTE | 2024-08-11 09:56 | PC.NURSE ---
NG removed by Dr. Storey at 0745. Patient tolerating ice chips. Patient had one moderate, formed bowel movement. No complaints of nausea or abdominal pain.
--- NOTE | 2024-08-11 10:53 | DI.RAD.S_ITS ---
PROCEDURE: XR KUB INDICATIONS: Partial small bowel obstruction TECHNIQUE: One view of the abdomen acquired. COMPARISON: None. FINDINGS: Surgical changes and devices: None. Bowel: Bowel gas pattern is normal. Moderate colonic stool. Soft tissues: No suspicious abdominal calcifications. Visualized solid organ contours appear normal in size. Bones: No suspicious bony lesions. IMPRESSION: Moderate stool without obstruction. Dictated by: Karen Morgan M.D. on 08/11/2024 at 12:49 Approved by: Karen Morgan M.D. on 08/11/2024 at 12:49
--- NOTE | 2024-08-11 13:05 | P.PN_ITS ---
Subjective Subjective Date Patient Seen: 08/11/24 Time Patient Seen: 13:05 Interval history: Patient seen today in follow up. Had unremarkable night. Patient started passing gas last night had a bowel movement which she believes to be normal this morning. NG tube was taken out by surgery. Patient does not have much appetite. She is tolerating ice chips. Patient does feel slightly more distended today and is having more abdominal pain but wonders if this is related to the severe vomiting and perhaps this is muscular. Also I did not reinitiate her meloxicam yet due to underlying problem and previously NPO No chest pain or shortness of breath No new other symptoms Blood pressure is well-controlled on outpatient medications 12 point review of systems is otherwise negative Exam Vital Signs (past 8 hours): - 08/11/24 07:00 08/11/24 09:00 08/11/24 09:54 Temperature 97.3 F L Pulse Rate 69 69 Respiratory Rate 18 Blood Pressure 144/57 H 139/78 Pulse Oximetry 96 Oxygen Delivery Method Room Air Oxygen Flow Rate 0 08/11/24 09:54 Temperature Pulse Rate 69 Respiratory Rate Blood Pressure 139/78 Pulse Oximetry Oxygen Delivery Method Oxygen Flow Rate Oxygen Delivery Method Room Air Oxygen Flow Rate 0 Narrative Exam Narrative: Afebrile vital signs are stable HEENT is unremarkable Neck: Supple without adenopathy Chest: Clear to auscultation without wheezes rhonchi or crackles Cor: Regular rate and rhythm with distant S1-S2 Abdomen: Positive bowel sounds x4, soft, distended, mild tenderness all 4 quadrants but most significant left upper quadrant and left lower quadrant Extremities no edema, pulses intact Objective Labs 08/11/24 04:50 08/11/24 04:50 Labs: Laboratory Results - last 24 hr 08/11/24 04:50 WBC 7.5 RBC 4.24 Hgb 10.9 L Hct 33.6 L MCV 79.3 L MCH 25.6 L MCHC 32.3 RDW 17.7 H Plt Count 265 Neut % (Auto) 76.7 H Lymph % (Auto) 10.8 L [place] % (Auto) 9.9 Eos % (Auto) 2.1 Baso % (Auto) 0.5 Neut # (Auto) 5800 Lymph # (Auto) 800 L [place] # (Auto) 700 Eos # (Auto) 200 Baso # (Auto) 0 Sodium 138 Potassium 3.9 Chloride 109 H Carbon Dioxide 24 BUN 12 Creatinine 0.90 Estimated GFR > 60 BUN/Creatinine Ratio 13.3 Glucose 103 H Calcium 8.2 L Total Bilirubin 0.3 AST 21 ALT 15 Alkaline Phosphatase 60 Total Protein 5.6 L Albumin 3.2 L Globulin 2.4 Albumin/Globulin Ratio 1.3 [facility] Medical History Anemia Skin cancer (melanoma) Depression Anxiety Migraines UTI (urinary tract infection) GERD (gastroesophageal reflux disease) Arthritis History of pneumonia Hyperlipidemia HTN (hypertension) Surgical History History of appendectomy Social History household members: none Smoking Status: Never smoker alcohol intake: never Assessment & Plan Assessment & Plan narrative: 73-year-old female admitted with partial small bowel obstruction Assessment 1. Partial small bowel obstruction unclear etiology. Appreciate surgical consultation. Plan: Improving. KUB today showed resolution of obstruction. Patient is passing gas did have a bowel movement but still distended with some abdominal pain which I think is most likely muscular and also that she is not on her routine meloxicam which likely I will wait till she was tolerating more p.o. before reinitiating. She has not required pain medications. She was ambulating. Will very slowly advance diet. Depending how she is doing perhaps home tomorrow or Wednesday. Assessment 2. Hypertension. Will have patient take her outpatient medications with sips of water. Blood pressure is well-controlled on her outpatient medications will continue to monitor Assessment 3. Mild depression, no acute issues Plan: Continue bupropion 150 mg in a.m.. Assessment number for DVT prophylaxis Plan: Lovenox Assessment 5. Leukocytosis suspect related to pain and bowel obstruction. Resolved on repeat CBC today Plan: No evidence of infection clinically or serologically. Will continue to monitor. Assessment 6. Hyperlipidemia Plan: Hold statin for now. Will re-initiate once taking p.o. intake Assessment 7. Degenerative arthritis Plan: Hold meloxicam for now Assessment 8. Normocytic anemia suspect delusional. No evidence of blood loss. Patient has had this as an outpatient as well. Plan we will follow Assessment 9. Left adrenal gland mass and patient with metal knee implant Plan: Will do a CT adrenal protocol to workup further. Code status is full code 52 minute spent with patient reviewing chart and discussing with physicians and nursing and meeting with patient and formulating plan and documentation Time-Based Coding :: [TOTAL MINUTES] spent with patient and on the chart (including review of chart, obtaining history, exam, reviewing outside data, placing orders, documenting exam and treatment plan, and counseling patient) on [DATE].
--- NOTE | 2024-08-11 13:17 | CM.DANOTE ---
Initial DCP Assessment Note Pt is a 73 yo female, resident of [place], admitted for management of Partial small bowel obstruction unclear etiology, conservative management at this time. PCP: Dodie Canela Payer: JOE/ION Reviewed chart, pt discussed in multidisciplinary rounds this morning. Diet being advanced slowly. KAYLIE 08/12-11 depending on diet. Patient lives independently, alone, drives. Patient is ambulating in room and appears to be at her physical and cognitive baseline. Home w/supportive friends and family is anticipated. No barriers identified at this time to patient's safe discharge home. CM team will plan to follow clinical course closely in case any DC needs or concerns arise. JOANIE Khalil Discharge Planning/Care Management CM Discharge Assessment Start: 08/10/24 07:46 Freq: Status: Active Protocol: Document 08/11/24 13:15 RIDGE (Rec: 08/11/24 13:17 RIDGE [id number]) Discharge Planning Assessment Assigned Wine Cellar Stock Clerk JOANIE Colon DPOA/Assigned Designee Name Tammy Moyer, daughter Contact Information [phone] Advance Directives? No History Provided By Patient,Medical Record Has Patient been admitted in last 30 No days? Prior Living Arrangements House Household Members none Type of transporation used prior to Drives own vehicle admit Independent with ADL's Yes Is patient alert and oriented? Yes Barriers to Discharge No Discharge Plan Home Transportation Arrangement Family/friends Referrals Initiated None needed
[2024-08-11] MEDS: ACETAMINOPHEN 325 MG TABLET 650 MG PO (15:55)
[2024-08-12 05:40] LABS: Add Manual Diff / Slide Review NO; Basophils Absolute Auto 0 /uL (0-100); Basophils Percent Auto 0.7 % (0-2); Eosinophils Absolute Auto 200 /uL (0-450); Eosinophils Percent Auto 4.6 % (2-4); Hematocrit 32.2 % (36-46); Hemoglobin 10.5 g/dL (12.0-16.0); Lymphocytes Absolute Auto 800 /uL (1100-4500); Lymphocytes Percent Auto 14.2 % (25-40); Mean Corpuscular HGB Conc 32.5 % (30-36); Mean Corpuscular Hemoglobin 25.7 PG (26-34); Mean Corpuscular Volume 79.2 fL (80-100); Monocytes Absolute Auto 500 /uL (0-900); Monocytes Percent Auto 9.9 % (3-14); Neutrophils Absolute Auto 3800 /uL (1500-7000); Neutrophils Percent Auto 70.6 % (50-75); Platelet Count 238 X10^3/uL (150-400); Red Blood Cell Count 4.07 X10^6/uL (4.0-5.2); Red Cell Distribution Width 17.6 % (11.6-14.8); White Blood Cell Count 5.4 X10^3/uL (4.5-11.0)
[2024-08-12 05:51] LABS: BUN Creatinine Ratio 11.1 (6-22); Blood Urea Nitrogen 9 mg/dL (7-17); Calcium 8.6 mg/dL (8.4-10.2); Carbon Dioxide 26 mmol/L (22-32); Chloride 107 mmol/L (98-107); Estimated Glomerular Filt Rate > 60 mL/min (>60); Glucose 87 mg/dL (70-99); HEMOLYSIS < 15 (0-50); Potassium 3.8 mmol/L (3.4-5.1); Sodium 138 mmol/L (137-145)
[2024-08-12 08:17] VITALS: BP 175/75; PULSE 63; RESP 15; TEMP 36.1; O2SAT 97
--- NOTE | 2024-08-12 08:52 | P.PN_ITS ---
Subjective Subjective Interval history: Feels well. Tolerant of liquids. No nausea. Passing flatus. Pain has resolved. Exam Vital Signs (past 8 hours): - 08/12/24 08:17 Temperature 96.9 F L Pulse Rate 63 Respiratory Rate 15 Blood Pressure 175/75 H Pulse Oximetry 97 Oxygen Flow Rate 0 Oxygen Delivery Method Room Air Oxygen Flow Rate 0 Narrative Exam Narrative: Lungs are clear to auscultation. Heart has a regular rate and rhythm with no murmur or gallop. Abdomen is soft and nontender with normal bowel sounds. Repeat CT yesterday to evaluate renal findings demonstrates a complex 3 x 5 by 4 adrenal lesion with calcifications. Objective Labs 08/12/24 04:55 08/12/24 04:55 Labs: Laboratory Results - last 24 hr 08/12/24 04:55 WBC 5.4 RBC 4.07 Hgb 10.5 L Hct 32.2 L MCV 79.2 L MCH 25.7 L MCHC 32.5 RDW 17.6 H Plt Count 238 Neut % (Auto) 70.6 Lymph % (Auto) 14.2 L [place] % (Auto) 9.9 Eos % (Auto) 4.6 H Baso % (Auto) 0.7 Neut # (Auto) 3800 Lymph # (Auto) 800 L [place] # (Auto) 500 Eos # (Auto) 200 Baso # (Auto) 0 Sodium 138 Potassium 3.8 Chloride 107 Carbon Dioxide 26 BUN 9 Creatinine 0.81 Estimated GFR > 60 BUN/Creatinine Ratio 11.1 Glucose 87 Calcium 8.6 PFSH Medical History Anemia Skin cancer (melanoma) Depression Anxiety Migraines UTI (urinary tract infection) GERD (gastroesophageal reflux disease) Arthritis History of pneumonia Hyperlipidemia HTN (hypertension) Surgical History History of appendectomy Social History household members: none Smoking Status: Never smoker alcohol intake: never Assessment & Plan Assessment and plan (1) Small bowel obstruction: Status: Acute (2) Lesion of adrenal gland: Status: Acute Plan Ileus versus partial small-bowel obstruction, resolved. Patient is at present tolerant of p.o.. Repeat KUB yesterday demonstrates normal small bowel gas pattern with air and stool in colon. Exam is innocuous. I agree with clear liquids today. Advance diet as tolerated. Adrenal lesion requires further evaluation by Urology. I recommend urologic consultation. Time-Based Coding :: [TOTAL MINUTES] spent with patient and on the chart (including review of chart, obtaining history, exam, reviewing outside data, placing orders, documenting exam and treatment plan, and counseling patient) on [DATE]. PROFEE Acid Purification Equipment Operator Document charge(s): Yes
[2024-08-12] MEDS: ENOXAPARIN 40 MG/0.4 ML SYRINGE SUBCUT (09:01)
[2024-08-12 09:03] VITALS: BP 175/75; PULSE 66
[2024-08-12] MEDS: ENALAPRIL 5 MG TABLET 20 MG PO ×2 (09:03→20:16)
[2024-08-12] MEDS: METOPROLOL ER 25 MG TABLET PO (09:03)
[2024-08-12 09:04] VITALS: BP 175/75; PULSE 66
[2024-08-12] MEDS: buPROPion SR 150 MG TAB PO (09:04)
[2024-08-12] MEDS: hydrALAZINE 25 MG TABLET 50 MG PO ×2 (09:04→20:16)
--- NOTE | 2024-08-12 09:43 | PM.PN.IH.1 ---
Subjective Subjective Date Patient Seen: 08/12/24 Time Patient Seen: 10:41 Interval history: Patient resting comfortably in chair. Reports significant improvement in abdominal pain nausea. Tolerating ice chips and advancing to clear diet per surgeon recommendation. CT yesterday notable for complex cystic and calcified mass of left adrenal gland, potentially consistent with pheochromocytoma vs prior adrenal hemorrhage. Medical workup for pheo indicated, however taking bupropion may cause falsely elevated metanephrine results. Patient indicates she has been taking this for postmenopausal vasomotor symptoms along with anxiety/depression, however she has no problem stopping medication for a period time to assist with evaluation. Exam Vital Signs (past 8 hours): - 08/12/24 08:17 08/12/24 09:03 08/12/24 09:03 Temperature 96.9 F L Pulse Rate 63 66 66 Respiratory Rate 15 Blood Pressure 175/75 H 175/75 H 175/75 H Pulse Oximetry 97 Oxygen Flow Rate 0 08/12/24 09:04 Temperature Pulse Rate 66 Respiratory Rate Blood Pressure 175/75 H Pulse Oximetry Oxygen Flow Rate Oxygen Delivery Method Room Air Oxygen Flow Rate [address] scan - abdomen: Radiologist's impression: Complex left adrenal cystic and calcified mass as discussed above showing imaging characteristics of a lesion not representing a benign adrenal adenoma. The calcified and cystic components can be seen in pheochromocytoma but also can be seen in the setting of prior adrenal hemorrhage. Laboratory correlation for pheochromocytoma is recommended. Of note the calcifications can be seen on plain film imaging and the CT scanogram plain film equivalents from this study and the CT 1 day ago, and also on a chest plain film from 06/21/23. The calcifications were largely obscured by overlapping electrode lead cluster and only a small portion of the medial left upper quadrant was included on that a prior chest plain film. Therefore this structure has presumably been present at least since early 2023. Dictated by: Amando Parsons M.D. on 08/11/2024 at 13:57 Approved by: Amando Parsons M.D. on 08/11/2024 at 14:18 Labs 08/12/24 04:55 08/12/24 04:55 Labs: Laboratory Results - last 24 hr 08/12/24 04:55 WBC 5.4 RBC 4.07 Hgb 10.5 L Hct 32.2 L MCV 79.2 L MCH 25.7 L MCHC 32.5 RDW 17.6 H Plt Count 238 Neut % (Auto) 70.6 Lymph % (Auto) 14.2 L [place] % (Auto) 9.9 Eos % (Auto) 4.6 H Baso % (Auto) 0.7 Neut # (Auto) 3800 Lymph # (Auto) 800 L [place] # (Auto) 500 Eos # (Auto) 200 Baso # (Auto) 0 Sodium 138 Potassium 3.8 Chloride 107 Carbon Dioxide 26 BUN 9 Creatinine 0.81 Estimated GFR > 60 BUN/Creatinine Ratio 11.1 Glucose 87 Calcium 8.6 PFSH Medical History Anemia Skin cancer (melanoma) Depression Anxiety Migraines UTI (urinary tract infection) GERD (gastroesophageal reflux disease) Arthritis History of pneumonia Hyperlipidemia HTN (hypertension) Surgical History History of appendectomy Social History household members: none Smoking Status: Never smoker alcohol intake: never Assessment & Plan Assessment and plan (1) Small bowel obstruction: Status: Acute (2) Lesion of adrenal gland: Problem details: Adrenal lesion requires further evaluation. I recommend urologic referral. Further efforts to characterize this lesion are indicated. Status: Acute Assessment & Plan narrative: 73-year-old female admitted with partial small bowel obstruction 1. Partial small bowel obstruction (resolved) Unclear etiology. Appreciate surgical consultation. Passing flatus and stool, abdominal pain and nausea improved compared to prior. Plan: -ADAT per surgeon recommendations 2. Left adrenal gland mass and patient with metal knee implant CT adrenal protocol to workup further with complex cystic and calcified mass potentially consistent with pheochromocytoma vs prior adrenal hemorrhage as noted above. Medical workup would involve either 24 hour urine metanephrine and catecholamines or plasma fractionated metanephrines, however interfering medications such as bupropion should be discontinued for at least 2 weeks prior to testing to avoid falsely elevated results. Discussed with patient who is comfortable with this plan, adjust bupropion as below in anticipation of outpatient workup and possible endocrinology consultation. 3. Hypertension -continue home enalapril, hydralazine, metoprolol 4. Mild depression -reduce bupropion to 75 mg for next few days then alternate days before stopping in anticipation of pheo workup 5. Leukocytosis (resolved) Suspect related to pain and bowel obstruction. -CTM 6. Hyperlipidemia -restart home simvastatin with p.o. intake 7. Degenerative arthritis -hold meloxicam for now 8. Normocytic anemia Suspect dilutional, no evidence of blood loss. Patient has had this as an outpatient as well. -CTM 9. DVT prophylaxis -Lovenox Code status is full code Time-Based Coding :: 40 minutes spent with patient and on the chart (including review of chart, obtaining history, exam, reviewing outside data, placing orders, documenting exam and treatment plan, and counseling patient) on 08/12/2024. 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
[2024-08-12 19:00] VITALS: BP 165/54; PULSE 71; RESP 18; TEMP 36.6; O2SAT 94
[2024-08-12 20:16] VITALS: BP 165/54; PULSE 70
[2024-08-12] MEDS: METOPROLOL ER 50 MG TABLET PO (20:16)
[2024-08-12 22:24] VITALS: BP 149/65; PULSE 70
[2024-08-13 07:00] VITALS: BP 174/69; PULSE 66; RESP 18; TEMP 36.6; O2SAT 97
--- NOTE | 2024-08-13 07:57 | PM.PN.IH.1 ---
Subjective Subjective Interval history: Feels well. No bowel movement but continuing to passed flatus. Denies abdominal pain. Tolerant of p.o. is. Exam Vital Signs (past 8 hours): Oxygen Delivery Method Room Air Oxygen Flow Rate 0 Narrative Exam Narrative: Lungs are clear to auscultation. Heart has regular rate and rhythm with no murmur or gallop. Abdomen is soft and nontender with normal bowel sounds. Objective Labs 08/12/24 04:55 08/12/24 04:55 PFSH Medical History Anemia Skin cancer (melanoma) Depression Anxiety Migraines UTI (urinary tract infection) GERD (gastroesophageal reflux disease) Arthritis History of pneumonia Hyperlipidemia HTN (hypertension) Surgical History History of appendectomy Social History household members: none Smoking Status: Never smoker alcohol intake: never Assessment & Plan Assessment and plan (1) Lesion of adrenal gland: Problem details: Adrenal lesion requires further evaluation. I recommend urologic referral. Further efforts to characterize this lesion are indicated. Status: Acute (2) Small bowel obstruction: Status: Acute Plan: Resolved ileus versus partial small bowel obstruction. I recommend we advance diet and consider discharge. Nothing surgical is indicated. I will sign off at this time. Please call with questions or concerns. Time-Based Coding :: [TOTAL MINUTES] spent with patient and on the chart (including review of chart, obtaining history, exam, reviewing outside data, placing orders, documenting exam and treatment plan, and counseling patient) on [DATE]. PROFEE Continuous Churn Buttermaker Document charge(s): Yes
[2024-08-13 08:41] VITALS: BP 174/69; PULSE 62
[2024-08-13] MEDS: ENALAPRIL 5 MG TABLET 20 MG PO (08:41)
[2024-08-13 08:42] VITALS: BP 174/69; PULSE 62
[2024-08-13] MEDS: METOPROLOL ER 25 MG TABLET PO (08:42)
[2024-08-13 08:43] VITALS: BP 174/69; PULSE 62
[2024-08-13] MEDS: hydrALAZINE 25 MG TABLET 50 MG PO (08:43)
[2024-08-13 09:12] VITALS: PULSE 65
[2024-08-13 09:13] VITALS: PULSE 65
--- NOTE | 2024-08-13 10:33 | PM.DS.IH.1 ---
History of Present Illness History of Present Illness Date Patient Seen: 08/10/24 Time Patient Seen: 13:44 Chief complaint: epigastric pain Narrative: This is a very pleasant patient who has a past medical history of hypertension, depression, osteoarthritis and hyperlipidemia who presents to the ER via ambulance for acute onset of severe abdominal pain in her midepigastrium and left upper quadrant. Patient was evaluated in the ER and found to have a leukocytosis and a partial small-bowel obstruction. Surgery was consulted and NG tube was placed. Patient was admitted for further monitoring, diagnostic workup and treatment. Patient is feeling much better. She has received Zofran which is helping with her nausea and dilauded for pain. Patient was in her usual state of health when on the night early in the morning of August 09 patient had sudden onset of abdominal pain she rates it as a 6/10 which then spontaneously resolved. She went on with her regular day and went out to lunch with her friend had a hamburger and then had vegetables in the evening and went to bed at 10:00 a.m.. She felt fine. She had a bowel movement. She had no fever chills rashes or any other symptoms. No diarrhea or constipation. No nausea. She awakened in the middle of the night with severe abdominal pain 9/10 that did not resolve within 3-4 hours and she called 911 to come to the ER. At that point she was diagnosed with partial small bowel obstruction and admitted to the hospital. Discharge Providers Provider Date of admission: 08/11/24 11:45 Discharge Date: 08/13/24 Primary care physician: Rosalinda Canela MD Consults: 08/10/24 08:52 Consult to General Surgery Routine Comment: Consulting Provider: Rosalinda Canela Reason for consultation: SBO 08/10/24 10:23 Consult to General Surgery Routine Comment: Consulting Provider: John Storey Reason for consultation: Possible SBO Discharge provider: Nick Diaz MD Summary Hospital Course Discharge Diagnosis: #SBO #left adrenal mass #hypertension #depression #hyperlipidemia #degenerative arthritis #normocytic anemia Hospital Course: Admitted for SBO 08/10/2024. NG tube placed for decompression and surgery consulted. Symptoms improved over the subsequent 2 days and diet advanced to clears then regular without issue. Incidental finding of complex cystic and calcified mass on left adrenal gland during CT imaging, suspicious for pheochromocytoma versus prior adrenal hemorrhage. Medical workup requires discontinuation of bupropion to avoid false elevation of metanephrine levels. Patient advised to wean and then discontinue bupropion over the course of next 1-2 weeks in anticipation of additional lab studies. Status at Discharge Cognitive/behavioral status at discharge: oriented Functional status at discharge: independent ambulation Overall status at discharge: patient is back to baseline Time Spent with Patient Time spent: Less than 30 minutes Exam Vital Signs (past 8 hours): - 08/13/24 07:00 08/13/24 08:41 08/13/24 08:42 Temperature 97.8 F Pulse Rate 66 62 62 Respiratory Rate 18 Blood Pressure 174/69 H 174/69 H 174/69 H Pulse Oximetry 97 Oxygen Flow Rate 0 08/13/24 08:43 Temperature Pulse Rate 62 Respiratory Rate Blood Pressure 174/69 H Pulse Oximetry Oxygen Flow Rate Oxygen Delivery Method Room Air Oxygen Flow Rate 0 Narrative Exam Narrative: General: Pleasant, NAD HEENT: NC/AT, EOMI, moist membranes CV: RRR, normal S1-S2, no m/g/r Resp: CTAB, comfortable WOB Abd: Soft, NTND, +BS Ext: No edema Skin: No rash or lesions noted Neuro: A&O x3, moves all extremities, no focal deficits Objective Labs 08/12/24 04:55 08/12/24 04:55 [facility] Medical History Anemia Skin cancer (melanoma) Depression Anxiety Migraines UTI (urinary tract infection) GERD (gastroesophageal reflux disease) Arthritis History of pneumonia Hyperlipidemia HTN (hypertension) Surgical History History of appendectomy Social History household members: none Smoking Status: Never smoker alcohol intake: never Discharge Assessment & Plan Assessment and Plan Assessment: 73-year-old female with hypertension, hyperlipidemia, depression, degenerative arthritis admitted for small-bowel obstruction. Plan of Treatment: 1. Partial small bowel obstruction (resolved) Unclear etiology. Appreciate surgical consultation. Passing flatus, abdominal pain and nausea resolved. Tolerating regular diet prior to discharge. 2. Left adrenal gland mass CT adrenal protocol to workup further with complex cystic and calcified mass potentially consistent with pheochromocytoma vs prior adrenal hemorrhage as noted above. Medical workup would involve either 24 hour urine metanephrine and catecholamines or plasma fractionated metanephrines, however interfering medications such as bupropion should be discontinued for at least 2 weeks prior to testing to avoid falsely elevated results. Discussed with patient who is comfortable with this plan, adjust bupropion as below in anticipation of outpatient workup and possible endocrinology consultation. 3. Hypertension Continue home enalapril, hydralazine, metoprolol. 4. Mild depression Reduce bupropion to 75 mg for next few days then alternate days before stopping in anticipation of pheo workup. 5. Leukocytosis (resolved) Suspect related to pain and bowel obstruction. 6. Hyperlipidemia Continue home simvastatin. 7. Degenerative arthritis Continue home meloxicam. 8. Normocytic anemia Chronic issue present prior to admission. Suspect dilutional, no evidence of blood loss. Continue to monitor outpatient. Discharge Plan Discharge Plan Patient Disposition: Home Discharge orders & Medications Prescriptions: Continued enalapril maleate 20 mg tablet 20 mg PO BID hydralazine 25 mg tablet 50 mg PO BID simvastatin 20 mg tablet 20 mg PO BEDTIME metoprolol succinate 25 mg cap,sprinkle,ER 24hr dose pack See Rx Instructions .ROUTE .COMPLEX Rx Instructions: Take 1 (25 mg) in morning, and 2 (50 mg) in the evening sodium,potassium,mag sulfates [Suprep Bowel Prep Kit] 17.5-3.13-1.6 gram recon soln See Rx Instructions PO .COMPLEX Qty: 354 0RF Rx Instructions: Take as directed by Physician meloxicam 7.5 mg tablet 7.5 mg PO BID ferrous gluconate 325 mg (37.5 mg iron) Tablet 325 mg PO DAILY Discontinued bupropion HCl 150 mg tablet sustained-release 12 hr 150 mg PO DAILY Follow up/Referrals: Rosalinda Canela MD [Primary Care Provider] - Diet/Activity/Treatments Diet: Diet as Tolerated Visit Report/Discharge Packet Stand Alone Forms: Patient Portal/API, Stroke Signs & Symptoms Discharge Data Primary Care Provider: Rosalinda Canela FRANCISCO Charge Codes Discharge inpatient/observation: [id number]
--- NOTE | 2024-08-13 14:34 | PC.NURSE ---
Discharge Note Patient A&O, VSS, RA, no complaints of pain/discomfort. Discharge packet reviewed with patient, all questions/concerns addressed. PIV discontinued, patient able to dress self and pack all belongings. Patient walked down to ED entrance to POV and friend.
== END 2024-08-13 14:15 | disposition home or self-care (01) | DRG 390 ==
LOC: ED 07:39 → AC 07:46
PROVIDERS: Emergency Medicine; Admitting Provider Family Medicine; Emergency Provider Emergency Medicine; PCP Family Medicine; Referring Provider Emergency Medicine; Visit Provider Family Medicine
DX: K56.600 Partial intestinal obstruction, unspecified as to cause (principal); I10 Essential (primary) hypertension; F32.A Depression, unspecified; E78.5 Hyperlipidemia, unspecified; M19.91 Primary osteoarthritis, unspecified site; D64.9 Anemia, unspecified; E27.8 Other specified disorders of adrenal gland; N95.1 Menopausal and female climacteric states; D35.02 Benign neoplasm of left adrenal gland
CPT/HCPCS: 36415; 74018; 74170; 74177; 80048; 80053; 83690; 85025; 93005; 93010; 99284; G0378; J1650; Q9967